=== PATIENT | female | born 1980 ===

== ENCOUNTER 2020-01-24 12:34 | Inpatient (IN) | payer MEDICARE, MEDICAID, SELFPAY ==
[2020-01-26 02:02] VITALS: BMI 27.7
[2020-01-27 06:33] VITALS: BP 128/78; PULSE 67; RESP 16; TEMP 36.2; O2SAT 98
[2020-01-27 07:00] VITALS: BMI 60.7
[2020-01-27] MEDS: buPROPion HCl XL 150 MG TAB.ER.24H PO (09:45)
[2020-01-27 09:46] VITALS: BP 128/78; PULSE 67
[2020-01-27] MEDS: Gabapentin 600 MG TABLET PO ×2 (09:46→20:57)
[2020-01-27] MEDS: amLODIPine Besylate 10 MG TABLET PO (09:46)
[2020-01-27 09:48] VITALS: BP 128/78; PULSE 67
[2020-01-27] MEDS: Losartan Potassium 50 MG TABLET 100 MG PO (09:48)
[2020-01-27] MEDS: hydroCHLOROthiazide 50 MG TABLET PO (09:49)
[2020-01-27] MEDS: Bacitracin Oint 14 GM TUBE 1 APPL TOPICAL ×2 (09:51→20:59)
--- NOTE | 2020-01-27 10:17 | HO.PSYCHPN ---
Subjective Subjective Reason For Visit: Unspecific Depressive Disorder Subjective Notes: Conditional Voluntary Interim History: pt feeling better no self harm looking forward to discharge no c/o side effects Medication Compliance: Yes Attending Groups: Yes Mental Status Exam Mental Status Exam Patient Appearance: Appropriate Patient Orientation: Person, Place, Time and Situation Level of Consciousness: Awake Patient Behavior: Appropriate Mood Description: Depressed (MILD), Blunted and Flat Affect Description: Calm and Flat Patient Cognition Impaired: No Ability to Follow Directions: Good Speech Pattern: Normal for Patient Diagnostics Vital Signs (24Hr): Vital Signs - 24 hr 01/27/20 06:33 01/27/20 09:46 01/27/20 09:48 Temperature 97.2 F Pulse Rate 67 67 67 Respiratory Rate 16 Blood Pressure 128/78 128/78 128/78 Pulse Oximetry 98 Body Mass Index 27.7 Labs Results: 01/23/20 15:24 01/23/20 15:24 Labs: Laboratory Results - last 48 hr 01/24/20 01/25/20 01/25/20 08:56 07:53 07:53 Estimat Average Glucose 111 Hemoglobin A1c 5.5 Triglycerides 99 Cholesterol 171 LDL Cholesterol, Calc 117 HDL Cholesterol 35 Urine Opiates Screen Ur Barbiturates Screen Phencyclidine Screen Ur Amphetamines Screen U Benzodiazepines Scrn Urine Cocaine Screen U Cannabinoids Screen Coronavirus (PCR) NEGATIVE 01/25/20 12:40 Estimat Average Glucose Hemoglobin A1c Triglycerides Cholesterol LDL Cholesterol, Calc HDL Cholesterol Urine Opiates Screen NOT DETECTED Ur Barbiturates Screen NOT DETECTED Phencyclidine Screen NOT DETECTED Ur Amphetamines Screen NOT DETECTED U Benzodiazepines Scrn NOT DETECTED Urine Cocaine Screen NOT DETECTED U Cannabinoids Screen NOT DETECTED Coronavirus (PCR) Medications Medications Ambulatory Orders Medication Instructions Recorded albuterol sulfate 2 puff INHALATION Q6H PRN 01/26/20 atorvastatin 40 mg PO BEDTIME 01/26/20 chlorthalidone 50 mg PO QAM 01/26/20 gabapentin 600 mg PO BID 01/26/20 losartan 100 mg PO DAILY 01/26/20 Allergies Allergies Allergy/AdvReac Type Severity Reaction Status Date / Time No Known Allergies Allergy Unverified 01/13/20 17:57 [No Known Allergies*] Assessment & Plan Assessment & Plan (1) Insomnia: Status: Acute Code(s): G47.00 - Insomnia, unspecified (2) Major psychotic depression, recurrent: Status: Acute Code(s): F33.3 - Major depressive disorder, recurrent, severe with psychotic symptoms Assessment and Plan: doing better education medication feels safe to return home (3) Suicidal behavior with attempted self-injury: Status: Inactive Code(s): T14.91XA - Suicide attempt, initial encounter Assessment and Plan: denies current thoughts Greater than 50% of the session was spent on counseling and/or coordination of care
[2020-01-27 14:45] VITALS: BMI 27.5
[2020-01-27 16:56] VITALS: BP 122/78; PULSE 63; TEMP 36.8
--- NOTE | 2020-01-27 20:48 | HO.PSYCHPN ---
Assessment & Plan Assessment & Plan (1) Major depression in complete remission: Status: Acute Code(s): F32.5 - Major depressive disorder, single episode, in full remission Assessment and Plan: seem safe for discharge tomorrow continue Wellbutrin Greater than 50% of the session was spent on counseling and/or coordination of care Patient educated on: diagnosis and medication risk/benefits Reason for contiued inpatient stay Substantial Risk for: harm to self Subjective Subjective Reason For Visit: Unspecific Depressive Disorder Medication Compliance: Yes Side effects from medications: No Attending Groups: Yes Mental Status Exam Mental Status Exam Patient Appearance: Well Grooomed Patient Orientation: Person, Place, Time and Situation Level of Consciousness: Awake Patient Behavior: Appropriate Mood Description: Withdrawn and Depressed Affect Description: Appropriate Patient Cognition Impaired: No Speech Pattern: Clear Hallucinations: None Delusions: Not Present Thought Process: Intact Depressive Symptoms: Increased Anxiety, Insomnia and Difficulty Sleeping Judgement: Good Diagnostics Vital Signs (24Hr): Vital Signs - 24 hr 01/27/20 06:33 01/27/20 09:46 01/27/20 09:48 Temperature 97.2 F Pulse Rate 67 67 67 Respiratory Rate 16 Blood Pressure 128/78 128/78 128/78 Pulse Oximetry 98 01/27/20 16:56 Temperature 98.2 F Pulse Rate 63 Respiratory Rate Blood Pressure 122/78 Pulse Oximetry Body Mass Index 27.5 Labs Results: 01/23/20 15:24 01/23/20 15:24 Labs: Laboratory Results - last 48 hr 01/24/20 01/25/20 01/25/20 08:56 07:53 07:53 Estimat Average Glucose 111 Hemoglobin A1c 5.5 Triglycerides 99 Cholesterol 171 LDL Cholesterol, Calc 117 HDL Cholesterol 35 Urine Opiates Screen Ur Barbiturates Screen Phencyclidine Screen Ur Amphetamines Screen U Benzodiazepines Scrn Urine Cocaine Screen U Cannabinoids Screen Coronavirus (PCR) NEGATIVE 01/25/20 12:40 Estimat Average Glucose Hemoglobin A1c Triglycerides Cholesterol LDL Cholesterol, Calc HDL Cholesterol Urine Opiates Screen NOT DETECTED Ur Barbiturates Screen NOT DETECTED Phencyclidine Screen NOT DETECTED Ur Amphetamines Screen NOT DETECTED U Benzodiazepines Scrn NOT DETECTED Urine Cocaine Screen NOT DETECTED U Cannabinoids Screen NOT DETECTED Coronavirus (PCR) Medications Medications Ambulatory Orders Medication Instructions Recorded albuterol sulfate 2 puff INHALATION Q6H PRN 01/26/20 atorvastatin 40 mg PO BEDTIME 01/26/20 chlorthalidone 50 mg PO QAM 01/26/20 gabapentin 600 mg PO BID 01/26/20 losartan 100 mg PO DAILY 01/26/20 Allergies Allergies Allergy/AdvReac Type Severity Reaction Status Date / Time No Known Allergies Allergy Unverified 01/13/20 17:57 [No Known Allergies*]
[2020-01-27 20:55] VITALS: BP 122/78; PULSE 63
[2020-01-27] MEDS: Metoprolol Succinate ER 100 MG TAB.ER.24H PO (20:55)
[2020-01-27] MEDS: Atorvastatin Calcium 40 MG TABLET PO (20:57)
[2020-01-28 06:08] VITALS: BP 131/74; PULSE 71; RESP 19; TEMP 36.5; O2SAT 99
[2020-01-28 08:36] VITALS: BP 131/74; PULSE 71
[2020-01-28] MEDS: Losartan Potassium 50 MG TABLET 100 MG PO (08:36)
[2020-01-28] MEDS: buPROPion HCl XL 150 MG TAB.ER.24H PO (08:36)
[2020-01-28 08:38] VITALS: BP 131/74; PULSE 71
[2020-01-28] MEDS: amLODIPine Besylate 10 MG TABLET PO (08:38)
[2020-01-28] MEDS: Gabapentin 600 MG TABLET PO (08:39)
[2020-01-28] MEDS: Bacitracin Oint 14 GM TUBE 1 APPL TOPICAL (08:39)
[2020-01-28] MEDS: hydroCHLOROthiazide 50 MG TABLET PO (08:39)
--- NOTE | 2020-01-28 13:51 | P.DS_ITS ---
DS: Providers Provider Date of admission: 01/24/20 12:34 Primary care physician: Juanjose Sotomayor MD DS: Diagnosis Discharge Diagnosis (1) Insomnia: Status: Acute Problem details: DIFFICULTY FALLING AND STAYING ASLEEP (2) Major psychotic depression, recurrent: Status: Acute Problem details: DEPRESSED MOOD LOW ENERGY IMPAIRED FUNCTIONING WAS HOPELESS HELPLESS RECENT SI (3) Suicidal behavior with attempted self-injury: Status: Inactive Problem details: RECENT SELF-HARMING THOUGHTS WITH SELF LACERATION MINOR OVERDOSE Discharge Plan Discharge Anticipated Discharge Date/Time: 01/28/20 13:49 Patient Disposition: Home, Self-Care Referrals: Leni Bailey [Other] - 01/31/20 3:45 pm (Telehealth) Therapist [Other] DR HOUSTON RIVERA [Other] [facility] [Other] - 02/01/20 7:30 am (PHP is meeting virtually using [employer]. Go to your [employer] address and you will have a invite to the assessment for the time scheduled from Carolin Frye. Her number is [phone]. If all goes planned you will be starting later that same day at 9 AM in the program. ) Juanjose Sotomayor MD [Primary Care Provider] - 02/08/20 1:30 pm Leonid Allen MD [Physician] - 03/02/20 3:00 pm (Psychiatry, telehealth. Initial appointment 03/02 3pm Follow up 03/28 11am) Discharge Medications: New bacitracin 500 unit/gram Ointment 1 appl topical BID@0830,2100 7 Days Qty: 1 RF: 2 trazodone 100 mg tablet 100 mg PO BEDTIME PRN (Reason: Insomnia) 30 Days Qty: 30 RF: 0 metoprolol succinate 100 mg Tablet Extended Release 24 Hr 100 mg PO BEDTIME 30 Days Qty: 30 RF: 0 bupropion HCl 150 mg Tablet Extended Release 24 Hr 150 mg PO DAILY Qty: 30 RF: 0 amlodipine 10 mg Tablet 10 mg PO DAILY 30 Days Qty: 30 RF: 0 nicotine (polacrilex) 2 mg Gum 2 mg buccal 4-6XD 30 Days Qty: 90 RF: 0 Continued atorvastatin 40 mg Tablet 40 mg PO BEDTIME RF: 0 chlorthalidone 50 mg Tablet 50 mg PO QAM RF: 0 albuterol sulfate 90 mcg/actuation Hfa Aerosol Inhaler 2 puff INHALATION Q6H PRN (Reason: Wheezing) RF: 0 gabapentin 600 mg Tablet 600 mg PO BID RF: 0 losartan 100 mg Tablet 100 mg PO DAILY RF: 0 Discharge Orders: Discharge Order (Routine); Ordered 01/28/20 Ordered By: Ciro Owens Diet: advance to your usual diet Activity on Discharge: As tolerated Patient Instructions: Bupropion (By mouth), Depression (DC), Help Prevent Suicide (DC), Anxiety (GEN) Stand Alone Forms: Community Support Discharge Date/Time: 01/28/20 14:50 Visit Report Forms: Patient Portal Discharge page Care Plan Goals: stable mood no self harm improve relationship with partner Health Concerns: depression couple conflict hypertension self harm Plan of Treatment: buproprion for depression trazadone for sleep therapy
== END 2020-01-28 14:50 | disposition home or self-care (01) | DRG 885 ==
PROVIDERS: Admitting Provider Psychiatry & Neurology Psychiatry; Emergency Provider Emergency Medicine; PCP Internal Medicine; Visit Provider Psychiatry & Neurology Psychiatry
DX: F33.3 Major depressive disorder, recurrent, severe with psychotic symptoms (principal); R45.851 Suicidal ideations; G47.00 Insomnia, unspecified; Z91.5 Personal history of self-harm; Z20.828 Contact with and (suspected) exposure to other viral communicable diseases; Z79.899 Other long term (current) drug therapy
CPT/HCPCS: 76775; 80051; 80061; 80307; 81001; 81025; 82565; 82947; 83036; 83690; 84520; 85025; 90686; 99232; 99239; 99285; U0003

== ENCOUNTER → 2020-07-20 14:36 | Outpatient (BNVA) | payer MEDICARE, MEDICAID, SELFPAY | PROVIDERS: PCP Internal Medicine; Visit Provider Urology | CPT/HCPCS: Q3014 ==

== ENCOUNTER → 2020-10-27 15:15 | Outpatient (BNVA) | payer MEDICARE, MEDICAID, SELFPAY | PROVIDERS: PCP Physician Assistant Medical; Visit Provider Urology | DX: N20.0 Calculus of kidney (principal) | CPT/HCPCS: Q3014 ==

== ENCOUNTER 2021-05-29 10:03 | Outpatient (REF) | payer MEDICARE, MEDICAID, SELFPAY ==
--- NOTE | ~2021-05-29 | US_ITS ---
EXAMINATION: US RETROPERITONEAL LIMITED (RENAL ONLY) CLINICAL INFORMATION: Calculus of kidney. COMPARISON: Renal ultrasound 01/23/2020 and 11/01/2019. XR abdomen KUB 12/01/2019. CT abdomen and pelvis without contrast 11/01/2018. TECHNIQUE: Real-time imaging of the kidneys. FINDINGS: RIGHT KIDNEY: 9.8 x 3.9 x 5.7 cm (SAG x AP x TRV). The kidney is normal in size, contour, and echogenicity. Renal cortical thickness is normal. No calculi or focal parenchymal lesions. No hydronephrosis. LEFT KIDNEY: 10.8 x 5.2 x 5.9 cm (SAG x AP x TRV). The kidney is normal in size, contour, and echogenicity. Renal cortical thickness is normal. No calculi or focal parenchymal lesions. No hydronephrosis. US/US renal BI IMPRESSION: Normal renal ultrasound..
== END 2021-05-29 10:04 | disposition home or self-care (01) ==
LOC: HO.HMGCX 10:03
PROVIDERS: Visit Provider Urology
DX: N20.0 Calculus of kidney (principal)
CPT/HCPCS: 76775

== ENCOUNTER 2022-10-15 15:48 | Emergency (ER) | payer MEDICARE, MEDICAID, SELFPAY ==
--- NOTE | ~2022-10-15 | CT_ITS ---
EXAMINATION: CT ABDOMEN AND PELVIS WITHOUT CONTRAST CLINICAL INFORMATION: Right-sided flank pain COMPARISON: CT abdomen pelvis 11/01/2018 TECHNIQUE: Multidetector volumetric imaging was performed from the superior aspect of the liver through the pubic symphysis. Sagittal and coronal reformatted images were obtained on the technologist's workstation. This CT examination was performed using dose optimization techniques as appropriate, variously including the following: *Automated exposure control *Adjustment of mA and/or kV according to patient size (this includes techniques or standardized protocols for targeted exams where dose is matched to indication/reason for exam; i.e. extremities or head) *Use of iterative reconstruction technique DLP: 698 mGy-cm FINDINGS: LUNG BASES: The visualized lung bases are unremarkable. LIVER, GALLBLADDER, AND BILIARY TREE: The liver is enlarged measuring 19.7 cm in greatest length but attenuation is normal. . No focal hepatic lesion or biliary ductal dilatation is present. Status post cholecystectomy. PANCREAS: Unremarkable. SPLEEN: Unremarkable. ADRENAL GLANDS: Unremarkable. KIDNEYS AND URETERS: The kidneys are normal in size, shape, and attenuation. No hydronephrosis, hydroureter, or calculi seen. No perinephric stranding. BLADDER: Empty and cannot be evaluated GASTROINTESTINAL TRACT: The small and large bowel are unremarkable. The appendix is not seen with certainty but there is no evidence of appendicitis appendicitis. ABDOMINAL WALL: No significant hernia is appreciated. LYMPH NODES: No retroperitoneal lymphadenopathy. VASCULAR: Calcific atherosclerotic plaque present in the abdominal aorta and iliac vessels PELVIC VISCERA: Status post hysterectomy. An abnormal adnexal mass or free intraperitoneal fluid is not seen. OSSEOUS STRUCTURES: Marked degenerative changes are present at L4-L5 with marked sclerosis and endplate changes with osteophytes. A disc prosthesis appears to be present at that level. CT/CT abdomen pelvis wo IV con IMPRESSION: 1. A cause for the patient's right-sided flank pain has not been found. 2. There has been no interval change since the 11/01/2018 study. Incidental note made of hepatomegaly, cholecystectomy, hysterectomy and degenerative and postoperative changes at L4-L5. Fleischner guidelines were followed.
[2022-10-15 16:16] VITALS: BP 174/120; PULSE 104; RESP 16; TEMP 36.6; O2SAT 99; BMI 33.5
--- NOTE | 2022-10-15 16:41 | ED.GENADULT ---
HPI - General Adult General Chief complaint: Abdominal Pain Stated complaint: Flank pain/Nauseas Time Seen by Provider: 10/15/22 21:35 Source: patient Mode of arrival: ambulatory Limitations: no limitations History of Present Illness HPI narrative: Patient history of depression anxiety history of nonobstructive kidney stone with chronic flank pain comes here for diffuse abdominal pain and back pain also noticed frequency and slight blood in the urine patient is status post appendectomy and cholecystectomy no nausea no vomiting no diarrhea Related Data Home Medications Medication Instructions Recorded Confirmed albuterol sulfate 90 mcg/actuation 2 puff inhalation Q6H PRN Wheezing 01/26/20 01/26/20 aerosol inhaler atorvastatin 40 mg tablet 40 mg PO BEDTIME 01/26/20 01/26/20 chlorthalidone 50 mg tablet 50 mg PO QAM 01/26/20 01/26/20 gabapentin 600 mg tablet 600 mg PO BID 01/26/20 01/26/20 losartan 100 mg tablet 100 mg PO DAILY 01/26/20 01/26/20 leuprolide 3.75 mg intramuscular mg IM 07/20/20 syringe kit Previous Rx's Medication Instructions Recorded amlodipine 10 mg tablet 10 mg PO DAILY 30 days #30 tabs 01/28/20 bacitracin 500 unit/gram topical 1 appl topical BID@0830,2100 7 01/28/20 ointment days #1 film bupropion HCl 150 mg 24 hr tablet, 150 mg PO DAILY #30 tabs 01/28/20 extended release metoprolol succinate 100 mg 100 mg PO BEDTIME 30 days #30 tabs 01/28/20 tablet,extended release 24 hr nicotine (polacrilex) 2 mg gum 2 mg buccal 4-6XD 30 days #90 ea 01/28/20 trazodone 100 mg tablet 100 mg PO BEDTIME PRN Insomnia 30 01/28/20 days #30 tabs pyridoxine (vitamin B6) 100 mg 100 mg PO DAILY 90 days #90 tabs 07/20/20 tablet dicyclomine 20 mg tablet 20 mg PO TID PRN abdominal pain 10/15/22 #20 tabs Allergies Allergy/AdvReac Type Severity Reaction Status Date / Time No Known Allergies Allergy Verified 10/27/20 15:17 [No Known Allergies*] Review of Systems Review of Systems: Yes all other systems are reviewed and are negative PMFSH Past Medical History Medical History Major depression in complete remission Major psychotic depression, recurrent Suicidal behavior with attempted self-injury Social History Social History Smoked in Last 30 Days: No Use of substances other than those prescribed or required for medical reasons: No Advance Directives: No Advance Directives Information Provided: No Patient : No Physical Exam ED Vital Signs: Vital Signs - 24 hr 10/15/22 16:16 10/15/22 20:03 10/15/22 22:02 Temperature 98 F 98.8 F Pulse Rate 104 H 82 70 Respiratory Rate 16 12 20 Blood Pressure 174/120 H 159/105 H 143/89 H Pulse Oximetry 99 98 96 Oxygen Delivery Method Room Air Room Air Room Air BMI result Body Mass Index 33.5 Appearance: Alert. Oriented X3. No acute distress. Eyes: No pallor or icterus ENT: Pharynx normal. Oral Mucosa moist Neck: Normal inspection. Neck supple. CVS: Normal heart rate and rhythm. Pulses normal. Respiratory: No respiratory distress. Equal air entry bilateral, no wheezing/rales/rhonchi Abdomen: Soft mild diffuse tenderness no rebound tenderness or guarding. Bowel sounds are present, no mass palpable, no CVA tenderness Skin: Skin warm and dry. Normal skin color. Normal skin turgor. Extremities: No lower extremity edema. No calf tenderness Neuro: Oriented X 3. No motor deficit. Course Course Course Narrative: 42 year old female presents for evaluation of right flank pain. Hx of kidney stones. Plan for labs, UA, CT Medications Administered Discontinued Medications Generic Name Dose Route Start Last Admin Trade Name Freq PRN Reason Stop Dose Admin Dicyclomine HCl 20 mg 10/15/22 22:06 10/15/22 22:16 Dicyclomine Hcl 10 Mg Capsule PO 10/15/22 22:07 20 mg ONCE ONE Administration Medical Decision Making Medical Decision Making [facility] Narrative: Patient with frequent flank pain CT scan negative for acute pathology in the abdomen or kidneys discharge patient home advised to drink plenty of fluids Lab Data [facility] Lab Attestation statement: I reviewed the patient's lab results. 10/15/22 16:44 10/15/22 16:44 Labs: Lab Results 10/15/22 10/15/22 10/15/22 Range/Units 15:13 16:44 16:44 WBC 10.6 (4.8-10.8) X10*3/uL RBC 4.85 (4.20-5.50) X10*6/uL Hgb 13.9 (12.0-16.0) g/dl Hct 42.5 (37.0-47.0) % MCV 87.6 (80.0-98.0) fL MCH 28.7 (27.0-33.0) pg MCHC 32.7 (31.0-35.0) g/dl RDW 14.4 (11.0-16.0) % Plt Count 286 (160-400) X10*3/uL MPV 8.6 L (9.4-12.3) fL Immature Gran % (Auto) 0.5 H (0.0-0.4) % Neut % (Auto) 63.4 (45-73) % Lymph % (Auto) 27.9 (20-40) % Garland % (Auto) 5.0 (2-11) % Eos % (Auto) 2.6 (0-4) % Baso % (Auto) 0.6 (0-2) % Lymph # (Auto) 3.0 (1.2-4.9) X10*3/uL Garland # (Auto) 0.5 (0.1-1.2) X10*3/uL Eos # (Auto) 0.3 (0.0-0.4) X10*3/uL Baso # (Auto) 0.1 (0.0-0.2) X10*3/uL Abs Immat Gran (auto) 0.05 H (0.00-0.03) X10*3/uL Absolute Neuts (auto) 6.7 (2.0-8.3) x10*3/uL Absolute Nucleated RBC 0.000 (0.0-0.012) X10*3/uL Nucleated RBC % (auto) 0.0 (0.0-0.2) /100WBC Sodium 140 (135-145) mmol/L Potassium 4.1 (3.3-5.1) mmol/L Chloride 107 (96-108) mmol/L Carbon Dioxide 25 (22-29) mmol/L Anion Gap 12 (12-20) BUN 11 (9-16) mg/dL Creatinine 0.80 (0.5-1.4) mg/dL Estim Creat Clear Calc 85.3 Estimated GFR > 60 Random Glucose 97 (60-115) mg/dL Calcium 9.8 (8.4-10.2) mg/dL Total Bilirubin 0.2 (0.0-1.0) mg/dL AST 12 (5-31) U/L ALT 14 (0-31) U/L Alkaline Phosphatase 140 H (39-117) U/L Total Protein 7.8 (6.5-8.0) g/dL Albumin 4.3 (3.5-5.0) g/dL Lipase 26 (8-78) U/L Urine Color Yellow Urine Appearance Clear Urine pH 5.5 (5.0-9.0) Ur Specific [place] 1.020 (1.005-1.025) Urine Protein Negative (Neg-Trace) mg/dL Urine Glucose (UA) Negative (Negative) mg/dL Urine Ketones Trace (Negative) mg/dL Urine Blood Small (1+) H (Negative) Urine Nitrite Negative (Negative) Ur Leukocyte Esterase Negative (Negative) Urine RBC 6-10 H (0-2) /HPF Urine WBC 0-5 (0-5) /HPF Ur Squamous Epith Cells 0-2 (0-2) /HPF Calcium Oxalate Crystal Present Urine Bacteria Trace (None Seen) Hyaline Casts 0-2 (0-2) /LPF 10/15/23 Range/Units 20:23 WBC (4.8-10.8) X10*3/uL RBC (4.20-5.50) X10*6/uL Hgb (12.0-16.0) g/dl Hct (37.0-47.0) % MCV (80.0-98.0) fL MCH (27.0-33.0) pg MCHC (31.0-35.0) g/dl RDW (11.0-16.0) % Plt Count (160-400) X10*3/uL MPV (9.4-12.3) fL Immature Gran % (Auto) (0.0-0.4) % Neut % (Auto) (45-73) % Lymph % (Auto) (20-40) % Garland % (Auto) (2-11) % Eos % (Auto) (0-4) % Baso % (Auto) (0-2) % Lymph # (Auto) (1.2-4.9) X10*3/uL Garland # (Auto) (0.1-1.2) X10*3/uL Eos # (Auto) (0.0-0.4) X10*3/uL Baso # (Auto) (0.0-0.2) X10*3/uL Abs Immat Gran (auto) (0.00-0.03) X10*3/uL Absolute Neuts (auto) (2.0-8.3) x10*3/uL Absolute Nucleated RBC (0.0-0.012) X10*3/uL Nucleated RBC % (auto) (0.0-0.2) /100WBC Sodium (135-145) mmol/L Potassium (3.3-5.1) mmol/L Chloride (96-108) mmol/L Carbon Dioxide (22-29) mmol/L Anion Gap (12-20) BUN (9-16) mg/dL Creatinine (0.5-1.4) mg/dL Estim Creat Clear Calc Estimated GFR Random Glucose (60-115) mg/dL Calcium (8.4-10.2) mg/dL Total Bilirubin (0.0-1.0) mg/dL AST (5-31) U/L ALT (0-31) U/L Alkaline Phosphatase (39-117) U/L Total Protein (6.5-8.0) g/dL Albumin (3.5-5.0) g/dL Lipase (8-78) U/L Urine Color Yellow Urine Appearance Cloudy Urine pH 5.5 (5.0-9.0) Ur Specific [place] 1.025 (1.005-1.025) Urine Protein Trace (Neg-Trace) mg/dL Urine Glucose (UA) Negative (Negative) mg/dL Urine Ketones Trace (Negative) mg/dL Urine Blood Moderate (2+) H (Negative) Urine Nitrite Negative (Negative) Ur Leukocyte Esterase Negative (Negative) Urine RBC 11-20 H (0-2) /HPF Urine WBC 0-5 (0-5) /HPF Ur Squamous Epith Cells 3-5 (0-2) /HPF Calcium Oxalate Crystal Present Urine Bacteria Trace (None Seen) Hyaline Casts 0-2 (0-2) /LPF Discharge Plan Discharge Clinical Impression: Abdominal pain, Irritable bowel syndrome Patient Disposition: Home, Self-Care Instructions: Irritable Bowel Syndrome (ED), Abdominal Pain (ED) Additional Instructions: You have chronic abdominal pain likely have IBS Take Bentyl 1 tablet every 8 hours as needed Follow-up with PCP Prescriptions: New dicyclomine 20 mg tablet 20 mg PO TID PRN (Reason: abdominal pain) Qty: 20 0RF No Action atorvastatin 40 mg Tablet 40 mg PO BEDTIME chlorthalidone 50 mg Tablet 50 mg PO QAM albuterol sulfate 90 mcg/actuation Hfa Aerosol Inhaler 2 puff INHALATION Q6H PRN (Reason: Wheezing) gabapentin 600 mg Tablet 600 mg PO BID losartan 100 mg Tablet 100 mg PO DAILY bacitracin 500 unit/gram Ointment 1 appl topical BID@0830,2100 7 Days Qty: 1 2RF Protocol: Apply to: Apply to: AREAS OF LACERATION Rx Instructions: apply 2 x day to areas of laceration trazodone 100 mg tablet 100 mg PO BEDTIME PRN (Reason: Insomnia) 30 Days Qty: 30 0RF metoprolol succinate 100 mg Tablet Extended Release 24 Hr 100 mg PO BEDTIME 30 Days Qty: 30 0RF Protocol: Hold for SBP/HR < HOLD for SBP < : 90 HOLD for HR < : 60 bupropion HCl 150 mg Tablet Extended Release 24 Hr 150 mg PO DAILY Qty: 30 0RF amlodipine 10 mg Tablet 10 mg PO DAILY 30 Days Qty: 30 0RF Protocol: Hold for SBP< HOLD for SBP < : 90 nicotine (polacrilex) 2 mg Gum 2 mg buccal 4-6XD 30 Days Qty: 90 0RF pyridoxine (vitamin B6) 100 mg tablet 100 mg PO DAILY 90 Days Qty: 90 1RF Interventions: ED Discharge Assessment Last Done: 10/15/22 22:20 Discharge Date/Time: 10/15/22 23:02
[2022-10-15 16:51] LABS: Basophils Absolute Auto 0.1 X10*3/uL (0.0-0.2); Basophils Percent Auto 0.6 % (0-2); Eosinophils Absolute Auto 0.3 X10*3/uL (0.0-0.4); Eosinophils Percent Auto 2.6 % (0-4); Hematocrit 42.5 % (37.0-47.0); Hemoglobin 13.9 g/dl (12.0-16.0); Imm Gran Abs Auto 0.05 X10*3/uL (0.00-0.03); Imm Gran Pct Auto 0.5 % (0.0-0.4); Lymphocytes Percent Auto 27.9 % (20-40); MANUAL DIFF FLAG NO; Mean Corpuscular HGB Conc 32.7 g/dl (31.0-35.0); Mean Corpuscular Hemoglobin 28.7 pg (27.0-33.0); Mean Corpuscular Volume 87.6 fL (80.0-98.0); Mean Platelet Volume 8.6 fL (9.4-12.3); Monocytes Absolute Auto 0.5 X10*3/uL (0.1-1.2); Neutrophils Absolute Auto 6.7 x10*3/uL (2.0-8.3); Neutrophils Percent Auto 63.4 % (45-73); Platelet Count 286 X10*3/uL (160-400); Red Blood Count 4.85 X10*6/uL (4.20-5.50); Red Cell Distribution Width 14.4 % (11.0-16.0); White Blood Count 10.6 X10*3/uL (4.8-10.8)
[2022-10-15 17:08] LABS: Alanine Aminotransferase 14 U/L (0-31); Albumin Level 4.3 g/dL (3.5-5.0); Alkaline Phosphatase 140 U/L (39-117); Anion Gap 12 (12-20); Aspartate Amino Transferase 12 U/L (5-31); Bilirubin Total 0.2 mg/dL (0.0-1.0); Blood Urea Nitrogen 11 mg/dL (9-16); Calcium 9.8 mg/dL (8.4-10.2); Carbon Dioxide 25 mmol/L (22-29); Chloride 107 mmol/L (96-108); Creatinine Clr Calc Pharmacy 85.3; Estimated Glomerular Filt Rate > 60; Glucose Random 97 mg/dL (60-115); Lipase 26 U/L (8-78); Potassium 4.1 mmol/L (3.3-5.1); Sodium 140 mmol/L (135-145); Total Protein 7.8 g/dL (6.5-8.0)
[2022-10-15 17:48] LABS: Appearance Urine Clear; Color Urine Yellow; Glucose Urine UA Negative (Negative); Leukocyte Esterase Urine Negative (Negative); Nitrite Urine Negative (Negative); PH 5.5 (5.0-9.0); UMIC TRIGGER UACC YES; Urine Blood Small (1+) (Negative); Urine Ketones Trace mg/dL (Negative); Urine Protein Negative (Neg-Trace)
[2022-10-15 18:05] LABS: Bacteria Urine Trace (None Seen); Calcium Oxalate Crystals Urine Present; Hyaline Casts Urine 0-2 /LPF (0-2); Squamous Epithelial Cell Urine 0-2 /HPF (0-2); WBC Urine 0-5 /HPF (0-5)
[2022-10-15 20:03] VITALS: BP 159/105; PULSE 82; RESP 12; TEMP 37.1; O2SAT 98
[2022-10-15 20:34] LABS: Appearance Urine Cloudy; Color Urine Yellow; Glucose Urine UA Negative (Negative); Leukocyte Esterase Urine Negative (Negative); Nitrite Urine Negative (Negative); PH 5.5 (5.0-9.0); Specific Gravity - Urine 1.025 (1.005-1.025); UMIC TRIGGER UACC YES; Urine Blood Moderate (2+) (Negative); Urine Ketones Trace mg/dL (Negative); Urine Protein Trace mg/dL (Neg-Trace)
[2022-10-15 21:07] LABS: Bacteria Urine Trace (None Seen); Calcium Oxalate Crystals Urine Present; Hyaline Casts Urine 0-2 /LPF (0-2); WBC Urine 0-5 /HPF (0-5)
[2022-10-15 22:02] VITALS: BP 143/89; PULSE 70; RESP 20; O2SAT 96
[2022-10-15] MEDS: Dicyclomine HCl 10 MG CAPSULE 20 MG PO (22:16)
== END 2022-10-15 23:02 | disposition home or self-care (01) ==
PROVIDERS: Physician Assistant; Emergency Provider Internal Medicine; PCP Physician Assistant Medical
DX: K58.9 Irritable bowel syndrome, unspecified (principal); R10.13 Epigastric pain; Z79.899 Other long term (current) drug therapy
CPT/HCPCS: 36415; 74176; 80053; 81001; 81003; 83690; 85025; 99284

== ENCOUNTER 2022-10-24 19:46 | Emergency (ER) | payer MEDICARE, MEDICAID, SELFPAY ==
--- NOTE | ~2022-10-24 | XR_ITS ---
EXAMINATION: XR CHEST CLINICAL INFORMATION: Chest pain, SOB COMPARISON: Chest 12/13/2014. TECHNIQUE: Frontal view of the chest was obtained. FINDINGS: No significant abnormality is noted involving the heart, lungs, mediastinum, bony thorax or soft tissues. XR/XR chest 1V IMPRESSION: Unremarkable chest examination.
--- NOTE | 2022-10-24 19:49 | ECG_ITS ---
Test Reason : CHEST PAIN Blood Pressure : / mmHG Vent. Rate : 077 BPM Atrial Rate : 077 BPM P-R Int : 154 ms QRS Dur : 088 ms QT Int : 394 ms P-R-T Axes : 053 -09 -12 degrees QTc Int : 445 ms Normal sinus rhythm Possible Anterolateral infarct , age undetermined Abnormal ECG When compared with ECG of 13-DEC-2014 07:34, Nonspecific T wave abnormality, worse in Anterior leads Referred By: Vanessa Tran Electronically Signed By:Francis Duval
[2022-10-24 19:52] VITALS: BP 173/108; PULSE 90; RESP 18; TEMP 36; O2SAT 97; BMI 31.6
--- NOTE | 2022-10-24 19:54 | ED_ITS ---
HPI - General Adult General Chief complaint: Chest Pain Stated complaint: chest pain,left arm pain Time Seen by Provider: 10/24/22 20:49 Source: patient Mode of arrival: ambulatory History of Present Illness HPI narrative: 42-year-old female who presents with chest tightness that she states started at approximately noon today and reports that she had previously had nausea and vomiting prior to this. Patient was concerned because it was radiating to her left arm but she denies any associated headache, dizziness, fevers, chills but states she has been experiencing some shortness of breath and denies any history of [place] or stroke. Patient also reports tingling in her fingers. Patient denies any new cough or sore throat and denies any abdominal discomfort, diarrhea or dysuria. Related Data Home Medications Medication Instructions Recorded Confirmed albuterol sulfate 90 mcg/actuation 2 puff inhalation Q6H PRN Wheezing 01/26/20 01/26/20 aerosol inhaler atorvastatin 40 mg tablet 40 mg PO BEDTIME 01/26/20 01/26/20 chlorthalidone 50 mg tablet 50 mg PO QAM 01/26/20 01/26/20 gabapentin 600 mg tablet 600 mg PO BID 01/26/20 01/26/20 losartan 100 mg tablet 100 mg PO DAILY 01/26/20 01/26/20 leuprolide 3.75 mg intramuscular mg IM 07/20/20 syringe kit Previous Rx's Medication Instructions Recorded amlodipine 10 mg tablet 10 mg PO DAILY 30 days #30 tabs 01/28/20 bacitracin 500 unit/gram topical 1 appl topical BID@0830,2100 7 01/28/20 ointment days #1 film bupropion HCl 150 mg 24 hr tablet, 150 mg PO DAILY #30 tabs 01/28/20 extended release metoprolol succinate 100 mg 100 mg PO BEDTIME 30 days #30 tabs 01/28/20 tablet,extended release 24 hr nicotine (polacrilex) 2 mg gum 2 mg buccal 4-6XD 30 days #90 ea 01/28/20 trazodone 100 mg tablet 100 mg PO BEDTIME PRN Insomnia 30 01/28/20 days #30 tabs pyridoxine (vitamin B6) 100 mg 100 mg PO DAILY 90 days #90 tabs 07/20/20 tablet dicyclomine 20 mg tablet 20 mg PO TID PRN abdominal pain 10/15/22 #20 tabs omeprazole 40 mg capsule,delayed 40 mg PO DAILY #30 caps 10/24/22 release Allergies Allergy/AdvReac Type Severity Reaction Status Date / Time No Known Allergies Allergy Verified 10/24/22 19:57 [No Known Allergies*] Review of Systems 2 Review of Systems: Pertinent positives and negatives as stated in HPI PMFSH Past Medical History Source: nursing notes reviewed Medical History Major depression in complete remission Major psychotic depression, recurrent Suicidal behavior with attempted self-injury Social History Social History Alcohol intake: current Alcohol intake frequency: holidays/special occasions only Smoked in Last 30 Days: Yes Use of substances other than those prescribed or required for medical reasons: No Advance Directives: No Advance Directives Information Provided: No Patient : No Physical Exam ED Vital Signs: Vital Signs - 24 hr 10/24/22 19:52 10/24/22 20:13 10/24/22 22:00 Temperature 96.8 F Pulse Rate 90 85 70 Respiratory Rate 18 22 H 22 H Blood Pressure 173/108 H 168/102 H 142/89 H Pulse Oximetry 97 97 98 Oxygen Delivery Method Room Air Room Air Room Air BMI result Body Mass Index 31.6 VITAL SIGNS: Reviewed. GENERAL: Well developed, well nourished, in no acute distress. HEAD: Normocephalic/atraumatic EYES: PERRLA, EOMI EARS: Ext canals without abnormality NOSE: Nares patent bilateral OROPHARYNX: no oral lesions noted, posterior pharynx clear NECK: Supple, no adenopathy LUNGS: Normal breath sounds. No adventitious sounds or accessory muscle use. SpO2<98> CARDIOVASCULAR: Regular rate and rhythm without noted murmurs ABDOMEN: Soft, non-tender, non-distended with bowel sounds. MUSCULOSKELETAL: No tenderness, deformities, or effusions noted on gross inspection. EXTREMITIES: No cyanosis, clubbing or edema. SKIN: Inspection of the skin reveals no rashes NEUROLOGIC: Alert and oriented x 4. Strength and sensation to light touch were grossly intact x 4. Course Course Course Narrative: This is an RME: Additional HPI, ROS, PE not included below will be deferred to primary provider. 42 year old female with past medical history of nephrolithiasis presents with chest pain and left arm pain that started this morning. Patient describes the chest pain as squeezing and some shortness of breath. Patient reports vomiting 2x today. Patient reports tingling in left fingers. Patient is a smoker. Patient denies fever, chills, night sweats. Plan: labs, EKG, Medications Administered Discontinued Medications Generic Name Dose Route Start Last Admin Trade Name Anette PRN Reason Stop Dose Admin Amlodipine Besylate 10 mg 10/24/22 22:32 10/24/22 22:38 Amlodipine Besylate 10 Mg Tablet PO 10/24/22 22:33 10 mg ONCE ONE Administration Protocol Sucralfate 1 gm 10/24/22 22:01 10/24/22 22:16 Sucralfate Oral Suspension 1 Gm/10 Ml Oral.Susp PO 10/24/22 22:02 1 gm ONCE ONE Administration Medical Decision Making Medical Decision Making MDM Narrative: 42-year-old female with history and clinical presentation DDX: Pneumonia, acid reflux, ACS, gastritis, pancreatitis. Patient is status post cholecystectomy. I reviewed all investigations and hematologic studies do not support any diagnosis of infection or anemia, all a chemistries demonstrate abnormal LFTs, the alkaline phosphatase is chronically stable and the slight bump in transaminases are likely attributable to either medication or fatty liver as there are no other clinical or historical findings to strongly support a retained stone. Otherwise, troponin is undetectable, chest x-ray does not demonstrate a pneumonia, and EKG is without acute changes when compared to prior. Patient was treated with acid reflux type medications and cautioned against using NSAIDs and discharged home. I increased her omeprazole to 40 mg daily. Differential Diagnosis Please see the discussion above Admission/Observation Consideration of admission/observation: Escalation of care including admission/observation considered Lab Data Please see the discussion above 10/24/22 20:26 10/24/22 20:26 Labs: Lab Results 10/24/22 10/24/22 10/24/22 Range/Units 20:26 20:26 20:26 WBC 9.0 (4.8-10.8) X10*3/uL RBC 4.38 (4.20-5.50) X10*6/uL Hgb 12.7 (12.0-16.0) g/dl Hct 37.9 (37.0-47.0) % MCV 86.5 (80.0-98.0) fL MCH 29.0 (27.0-33.0) pg MCHC 33.5 (31.0-35.0) g/dl RDW 14.0 (11.0-16.0) % Plt Count 249 (160-400) X10*3/uL MPV 8.5 L (9.4-12.3) fL Immature Gran % (Auto) 0.6 H (0.0-0.4) % Neut % (Auto) 57.6 (45-73) % Lymph % (Auto) 31.1 (20-40) % [place] % (Auto) 5.9 (2-11) % Eos % (Auto) 4.2 H (0-4) % Baso % (Auto) 0.6 (0-2) % Lymph # (Auto) 2.8 (1.2-4.9) X10*3/uL [place] # (Auto) 0.5 (0.1-1.2) X10*3/uL Eos # (Auto) 0.4 (0.0-0.4) X10*3/uL Baso # (Auto) 0.1 (0.0-0.2) X10*3/uL Abs Immat Gran (auto) 0.05 H (0.00-0.03) X10*3/uL Absolute Neuts (auto) 5.2 (2.0-8.3) x10*3/uL Absolute Nucleated RBC 0.000 (0.0-0.012) X10*3/uL Nucleated RBC % (auto) 0.0 (0.0-0.2) /100WBC Sodium 136 (135-145) mmol/L Potassium 3.3 (3.3-5.1) mmol/L Chloride 99 (96-108) mmol/L Carbon Dioxide 27 (22-29) mmol/L Anion Gap 13 (12-20) BUN 11 (9-16) mg/dL Creatinine 0.74 (0.5-1.4) mg/dL Estim Creat Clear Calc 89.5 Estimated GFR > 60 Random Glucose 106 (60-115) mg/dL Calcium 9.1 D (8.4-10.2) mg/dL Magnesium 2.0 (1.6-2.6) mg/dL Total Bilirubin 0.2 (0.0-1.0) mg/dL AST 57 H (5-31) U/L ALT 158 H (0-31) U/L Alkaline Phosphatase 167 H (39-117) U/L Troponin I High Sens < 2.7 (<3.5-17.0) ng/L Total Protein 7.3 (6.5-8.0) g/dL Albumin 3.9 (3.5-5.0) g/dL Lipase 20 (8-78) U/L Urine Color Urine Appearance Urine pH (5.0-9.0) Ur Specific [place] (1.005-1.025) Urine Protein (Neg-Trace) mg/dL Urine Glucose (UA) (Negative) mg/dL Urine Ketones (Negative) mg/dL Urine Blood (Negative) Urine Nitrite (Negative) Ur Leukocyte Esterase (Negative) 10/24/22 Range/Units 21:39 WBC (4.8-10.8) X10*3/uL RBC (4.20-5.50) X10*6/uL Hgb (12.0-16.0) g/dl Hct (37.0-47.0) % MCV (80.0-98.0) fL MCH (27.0-33.0) pg MCHC (31.0-35.0) g/dl RDW (11.0-16.0) % Plt Count (160-400) X10*3/uL MPV (9.4-12.3) fL Immature Gran % (Auto) (0.0-0.4) % Neut % (Auto) (45-73) % Lymph % (Auto) (20-40) % [place] % (Auto) (2-11) % Eos % (Auto) (0-4) % Baso % (Auto) (0-2) % Lymph # (Auto) (1.2-4.9) X10*3/uL [place] # (Auto) (0.1-1.2) X10*3/uL Eos # (Auto) (0.0-0.4) X10*3/uL Baso # (Auto) (0.0-0.2) X10*3/uL Abs Immat Gran (auto) (0.00-0.03) X10*3/uL Absolute Neuts (auto) (2.0-8.3) x10*3/uL Absolute Nucleated RBC (0.0-0.012) X10*3/uL Nucleated RBC % (auto) (0.0-0.2) /100WBC Sodium (135-145) mmol/L Potassium (3.3-5.1) mmol/L Chloride (96-108) mmol/L Carbon Dioxide (22-29) mmol/L Anion Gap (12-20) BUN (9-16) mg/dL Creatinine (0.5-1.4) mg/dL Estim Creat Clear Calc Estimated GFR Random Glucose (60-115) mg/dL Calcium (8.4-10.2) mg/dL Magnesium (1.6-2.6) mg/dL Total Bilirubin (0.0-1.0) mg/dL AST (5-31) U/L ALT (0-31) U/L Alkaline Phosphatase (39-117) U/L Troponin I High Sens (<3.5-17.0) ng/L Total Protein (6.5-8.0) g/dL Albumin (3.5-5.0) g/dL Lipase (8-78) U/L Urine Color Yellow Urine Appearance Clear Urine pH 7.5 (5.0-9.0) Ur Specific [place] 1.020 (1.005-1.025) Urine Protein Negative (Neg-Trace) mg/dL Urine Glucose (UA) Negative (Negative) mg/dL Urine Ketones Negative (Negative) mg/dL Urine Blood Negative (Negative) Urine Nitrite Negative (Negative) Ur Leukocyte Esterase Negative (Negative) Independent Interpretation I performed an independent interpretation of an: EKG Interpretation: Normal sinus rhythm, HR-77, no STEMI, AR/QRS/QTC is within normal limits. Radiology Impression Radiologist Impression: No pneumonia, otherwise my interpretation is in agreement with radiology's impression. External Record Review External record reviewed: Prior outpatient labs Chronic Conditions Patient?s care impacted by: Hypertension Discharge Plan Discharge Clinical Impression: Gastroesophageal reflux disease, Gastritis Patient Disposition: Home, Self-Care Instructions: Gastritis (ED), Diet for Stomach Ulcers and Gastritis (ED), Gastroesophageal Reflux Disease (ED) Additional Instructions: 1. Resume all home medications as prescribed. 2. I strongly recommend that you review the dietary recommendations to avoid excessive acid production. 3. I am giving you a prescription for medicine that will further control the acid production. 4. Follow-up with your primary care provider in the next 1-2 days. Return to the ER for any worsening symptoms. Prescriptions: New omeprazole 40 mg capsule,delayed release(DR/EC) 40 mg PO DAILY Qty: 30 0RF No Action atorvastatin 40 mg Tablet 40 mg PO BEDTIME chlorthalidone 50 mg Tablet 50 mg PO QAM albuterol sulfate 90 mcg/actuation Hfa Aerosol Inhaler 2 puff INHALATION Q6H PRN (Reason: Wheezing) gabapentin 600 mg Tablet 600 mg PO BID losartan 100 mg Tablet 100 mg PO DAILY bacitracin 500 unit/gram Ointment 1 appl topical BID@0830,2100 7 Days Qty: 1 2RF Protocol: Apply to: Apply to: AREAS OF LACERATION Rx Instructions: apply 2 x day to areas of laceration trazodone 100 mg tablet 100 mg PO BEDTIME PRN (Reason: Insomnia) 30 Days Qty: 30 0RF metoprolol succinate 100 mg Tablet Extended Release 24 Hr 100 mg PO BEDTIME 30 Days Qty: 30 0RF Protocol: Hold for SBP/HR < HOLD for SBP < : 90 HOLD for HR < : 60 bupropion HCl 150 mg Tablet Extended Release 24 Hr 150 mg PO DAILY Qty: 30 0RF amlodipine 10 mg Tablet 10 mg PO DAILY 30 Days Qty: 30 0RF Protocol: Hold for SBP< HOLD for SBP < : 90 nicotine (polacrilex) 2 mg Gum 2 mg buccal 4-6XD 30 Days Qty: 90 0RF dicyclomine 20 mg tablet 20 mg PO TID PRN (Reason: abdominal pain) Qty: 20 0RF pyridoxine (vitamin B6) 100 mg tablet 100 mg PO DAILY 90 Days Qty: 90 1RF
[2022-10-24 20:13] VITALS: BP 168/102; PULSE 85; RESP 22; O2SAT 97
[2022-10-24 20:31] LABS: MANUAL DIFF FLAG NO
[2022-10-24 20:32] LABS: Basophils Absolute Auto 0.1 X10*3/uL (0.0-0.2); Basophils Percent Auto 0.6 % (0-2); Eosinophils Absolute Auto 0.4 X10*3/uL (0.0-0.4); Eosinophils Percent Auto 4.2 % (0-4); Hematocrit 37.9 % (37.0-47.0); Hemoglobin 12.7 g/dl (12.0-16.0); Imm Gran Abs Auto 0.05 X10*3/uL (0.00-0.03); Imm Gran Pct Auto 0.6 % (0.0-0.4); Lymphocytes Absolute Auto 2.8 X10*3/uL (1.2-4.9); Lymphocytes Percent Auto 31.1 % (20-40); Mean Corpuscular HGB Conc 33.5 g/dl (31.0-35.0); Mean Corpuscular Volume 86.5 fL (80.0-98.0); Mean Platelet Volume 8.5 fL (9.4-12.3); Monocytes Absolute Auto 0.5 X10*3/uL (0.1-1.2); Monocytes Percent Auto 5.9 % (2-11); Neutrophils Absolute Auto 5.2 x10*3/uL (2.0-8.3); Neutrophils Percent Auto 57.6 % (45-73); Platelet Count 249 X10*3/uL (160-400); Red Blood Count 4.38 X10*6/uL (4.20-5.50)
[2022-10-24 20:59] LABS: Alanine Aminotransferase 158 U/L (0-31); Albumin Level 3.9 g/dL (3.5-5.0); Alkaline Phosphatase 167 U/L (39-117); Anion Gap 13 (12-20); Aspartate Amino Transferase 57 U/L (5-31); Bilirubin Total 0.2 mg/dL (0.0-1.0); Blood Urea Nitrogen 11 mg/dL (9-16); Calcium 9.1 mg/dL (8.4-10.2); Carbon Dioxide 27 mmol/L (22-29); Chloride 99 mmol/L (96-108); Creatinine Clr Calc Pharmacy 89.5; Estimated Glomerular Filt Rate > 60; Glucose Random 106 mg/dL (60-115); Potassium 3.3 mmol/L (3.3-5.1); Sodium 136 mmol/L (135-145); Total Protein 7.3 g/dL (6.5-8.0)
[2022-10-24 21:09] LABS: Troponin-I High Sensitivity < 2.7 ng/L (<3.5-17.0)
[2022-10-24 21:19] LABS: Lipase 20 U/L (8-78)
[2022-10-24 21:37] VITALS: PULSE 76
[2022-10-24 21:46] LABS: Appearance Urine Clear; Color Urine Yellow; Glucose Urine UA Negative (Negative); Leukocyte Esterase Urine Negative (Negative); Nitrite Urine Negative (Negative); PH 7.5 (5.0-9.0); Urine Blood Negative (Negative); Urine Ketones Negative (Negative); Urine Protein Negative (Neg-Trace)
[2022-10-24 22:00] VITALS: BP 142/89; PULSE 70; RESP 22; O2SAT 98
[2022-10-24] MEDS: Sucralfate Oral Suspension 1 GM/10 ML ORAL.SUSP PO (22:16)
[2022-10-24] MEDS: amLODIPine Besylate 10 MG TABLET PO (22:38)
== END 2022-10-25 00:34 | disposition home or self-care (01) ==
PROVIDERS: Physician Assistant; Emergency Provider Student in an Organized Health Care Education/Training Program
DX: R07.89 Other chest pain (principal); M79.602 Pain in left arm; K29.70 Gastritis, unspecified, without bleeding; Z79.899 Other long term (current) drug therapy
CPT/HCPCS: 36415; 71045; 80053; 81003; 83690; 83735; 84484; 85025; 93005; 99283; 99285

== ENCOUNTER 2023-01-02 13:00 | Outpatient (AMB) | payer MEDICARE, MEDICAID, SELFPAY ==
--- NOTE | 2023-01-02 13:30 | AM.OFFWIN_ITS ---
Intake Vital Signs 01/02/23 13:33 Height 5 ft Weight 166 lb BMI 32.4 BP 142/84 H Blood Pressure Location Rt brachial Position Sitting Pulse 104 H Pulse Source Pulse Oximeter Temp 98.2 F Temp Source Temporal Artery Scan Pulse Oximetry (%) 97 Intake Visit Reasons: [employer]/bee sting right hand Intake Note: pt is here for c/o bee sting on finger 9 days of swelling. also complains of coughing, chills, been exposed to covid from boyfriend, oldest child has covid and other daughter has viral infection Patient Tobacco Use Status: Current everyday Tobacco user Allergies No Known Allergies [No Known Allergies*] Allergy (Verified 01/02/23 13:33) Do you need a note to return to daycare/school/sports/work: Yes HPI HPI Comments History of Present Illness Details 42-year-old female presents with multipl e complaints. Patient was stung by bee 9 days ago playing a finger pain. In addition patient has been exposed to COVID has cough runny nose off and on chills. She would like a COVID test as well as a strep test. [facility] Medical History Major depression in complete remission Major psychotic depression, recurrent Suicidal behavior with attempted self-injury Social History Alcohol intake: current Alcohol intake frequency: holidays/special occasions only Patient Tobacco Use Status: Current everyday Tobacco user Review of Systems Const All systems reviewed & are unremarkable except as noted in HPI and below ENT Reports sore throat Resp Reports cough Physical Exam Vital Signs: Last Vital Signs Temp 98.2 F 01/02/23 13:33 Pulse 104 H 01/02/23 13:33 BP 142/84 H 01/02/23 13:33 Pulse Ox 97 01/02/23 13:33 BMI result Body Mass Index 32.4 Const General: cooperative, no acute distress and alert Orientation/consciousness: patient oriented x3 Limitations: no limitations HEENT Head: Yes normal to inspection Ears: hearing grossly normal bilaterally and external ears normal General nose exam: Normal external nose present Eyes General: appearance normal, both eyes and all related structures Neck Neck: Yes normal visual inspection Chest Chest palpation & inspection: normal inspection of the chest Resp Effort & Inspection: normal respiratory effort, able to speak in complete sentences and no audible wheezes Cardio Rate: regular rate GI Inspection: Yes normal to inspection Palpation (GI): Soft to palpation and nontender Skin General skin exam: no rashes or lesions noted Neuro General: patient oriented x3 Psych Appearance: grossly normal Mental Status: mental status grossly normal Speech and movement: Normal speech and movement present Affect: normal affect Attitude: cooperative Thought process: Normal thought process present Thought content: Normal thought content present Assessment & Plan Assessment & Plan (1) URI (upper respiratory infection): Code(s): J06.9 - Acute upper respiratory infection, unspecified Qualifiers: URI type: unspecified viral URI Qualified Code(s): J06.9 - Acute upper respiratory infection, unspecified Plan patient's signs symptoms and presentation most consistent with a viral URI. Versus COVID-19 versus strep throat. Will provide COVID is fretful swabs. With regard to patient's finger given 9 days ago no evidence of fluid collection abscess or obvious stinger over recommend symptomatic treatment with ice. Will follow up with resultant positive prescribe appropriate therapy. Discharge instructions, follow up and treatment are discussed with patient in my usual fashion. Alternatives in treatment are also discussed. The patient will return for worsening symptoms or as needed. Advised that any labs/imaging ordered will be followed up on and contact made if further treatment needed. Counseled that patient's condition may require further evaluation and/or treatment. Symptoms of concern for worsening disorder discussed in detail in my customary manner. Patient does verbalize understanding of the plan, there are no apparent barriers to communication. The patient is given the opportunity to ask questions and have them answered to his/her satisfaction Orders: Orders AMB Rapid Strep Screen Today Z13.9 - Encounter for screening, unspecified [facility] Covid-19 Ag Today J06.9 - Acute upper respiratory infection, unspecified Coding Level of Care Code Est Pt Level 3 (35928) Diagnoses Viral upper respiratory tract infection J06.9 URI type: unspecified viral URI
[2023-01-02 13:33] VITALS: BP 142/84; PULSE 104; TEMP 36.8; O2SAT 97; BMI 32.4
== END 2023-01-02 14:19 | disposition home or self-care (01) ==
PROVIDERS: Visit Provider Physician Assistant
DX: J02.9 Acute pharyngitis, unspecified (principal); J06.9 Acute upper respiratory infection, unspecified
CPT/HCPCS: 87880; 99213

== ENCOUNTER 2023-01-02 14:17 | Outpatient (REF) | payer MEDICARE, MEDICAID, SELFPAY ==
[2023-01-02 14:41] LABS: Binax Internal Control QC Valid; Binax Now Covid-19 Ag Negative (Negative)
== END 2023-01-02 14:18 | disposition home or self-care (01) ==
LOC: HO.HMGCLDS 14:17
PROVIDERS: Visit Provider Physician Assistant
DX: J06.9 Acute upper respiratory infection, unspecified (principal); Z20.822 Contact with and (suspected) exposure to COVID-19
CPT/HCPCS: 87811; C9803

== ENCOUNTER 2023-03-05 12:07 | Outpatient (AMB) | payer MEDICARE, MEDICAID, SELFPAY ==
--- NOTE | 2023-03-05 13:23 | AM.OFFWIN_ITS ---
Intake Vital Signs 03/05/23 13:24 Height 5 ft Weight 166 lb BMI 32.4 BP 134/72 Blood Pressure Location Rt brachial Position Sitting Pulse 88 Pulse Source Pulse Oximeter Temp 96.9 F Temp Source Temporal Artery Scan Pulse Oximetry (%) 100 Oxygen Delivery Method Room Air Intake Visit Reasons: EST/right knee pain (lobby) Intake Note: Pt is here c/o right knee pain. Pt states no falls but she has banged her knee. Pt states she also has arthritis. Patient Tobacco Use Status: Current everyday Tobacco user Allergies No Known Allergies [No Known Allergies*] Allergy (Verified 03/05/23 13:23) HPI HPI Comments History of Present Illness Details patient is a 43-year-old female in today for sick visit. Patient states that for the past 2 weeks she has experienced right knee pain. Denies any trauma to the area. Patient does have a past medical history significant for osteoarthritis of both knees. Patient states the pain feels more intense than arthritis, and that she is getting little relief with Motrin and Tylenol. Denies any tingling or numbness. Patient is able to bear weight on the affected knee in tandem walk. right knee strength is +5, popliteal and pedal pulses are +2. Skin is warm and dry normal for ethnicity. Some crepitus and cracking noted during range of motion harley uvers. Patient has full range of motion of the joint.There is point tenderness over the right patella. Patient likely has exacerbation of osteoarthritis of the right knee. However due to point tenderness over the right patella will obtain x-ray to rule out fracture. This is unlikely to be a venous arterial occlusion, a neurovascular compromise, or poses a threat to the limb. Patient will be referred to physical therapy. patient has been educated about the side effects and effects of Tylenol on the liver. Will be prescribed meloxicam for 10 days, for symptom relief. Patient has been educated on signs of worsening symptoms and when to return to the walk-in clinic or when to report to the emergency room. Patient has been instructed to follow-up with her primary care provider. [facility] Medical History (Updated 03/05/23 @ 14:06 by BROCK Sanchez) Osteoarthritis Suicidal behavior with attempted self-injury Major psychotic depression, recurrent Major depression in complete remission Social History Alcohol intake: current Alcohol intake frequency: holidays/special occasions only Patient Tobacco Use Status: Current everyday Tobacco user Review of Systems Const All systems reviewed & are unremarkable except as noted in HPI and below Denies frequent falls Musc Reports as per HPI Skin/Breast Reports as per HPI Neuro Denies frequent falls Physical Exam Vital Signs: Last Vital Signs Temp 96.9 F 03/05/23 13:24 Pulse 88 03/05/23 13:24 BP 134/72 03/05/23 13:24 Pulse Ox 100 03/05/23 13:24 Oxygen Delivery Method Room Air 03/05/23 13:24 BMI result Body Mass Index 32.4 Vital signs have been reviewed and are stable Const General: cooperative and no acute distress Orientation/consciousness: patient oriented x3 Limitations: no limitations HEENT Head: Yes normocephalic Neuro General: patient oriented x3 Gait exam (Neuro): Normal gait present Motor exam (neuro): 5/5 motor strength present throughout Assessment & Plan Assessment & Plan (1) Osteoarthritis: Comment: patient will be referred to physical therapy. Patient will also be given meloxicam to assist with pain. She has been educated on side effects of medication. Has been educated on signs and worsening symptoms and when to present to the emergency room. Patient is agreeable to this plan. Code(s): M19.90 - Unspecified osteoarthritis, unspecified site Qualifiers: Osteoarthritis location: knee Osteoarthritis type: primary Laterality: right Qualified Code(s): M17.11 - Unilateral primary osteoarthritis, right knee Orders: Orders PT Evaluation and Treatment Today M19.90 - Unspecified osteoarthritis, unspecified site XR knee RT 4V Today M25.561 - Pain in right knee Medications: New meloxicam 15 mg PO DAILY 10 tabs 0RF Coding Level of Care Code New Pt Level 4 (07580) Diagnoses Primary osteoarthritis of right knee M17.11 Osteoarthritis location: knee Osteoarthritis type: primary Laterality: right Time Spent (min) 30
[2023-03-05 13:24] VITALS: BP 134/72; PULSE 88; TEMP 36.1; O2SAT 100; BMI 32.4
== END 2023-03-05 14:56 | disposition home or self-care (01) ==
PROVIDERS: Visit Provider Nurse Practitioner Primary Care
DX: M17.11 Unilateral primary osteoarthritis, right knee (principal)
CPT/HCPCS: 99204

== ENCOUNTER 2023-03-05 13:56 | Outpatient (REF) | payer MEDICARE, MEDICAID, SELFPAY ==
--- NOTE | ~2023-03-05 | XR_ITS ---
EXAMINATION: XR KNEE, RIGHT CLINICAL INFORMATION: Pain COMPARISON: None available. TECHNIQUE: Four views of the right knee. FINDINGS: No acute finding. No fracture or dislocation. No significant effusion. No bony erosion. No significant degenerative change. XR/XR knee RT 4V IMPRESSION: No acute finding.
== END 2023-03-05 13:57 | disposition home or self-care (01) ==
LOC: HO.HMGCX 13:56
PROVIDERS: PCP Physician Assistant Medical; Visit Provider Nurse Practitioner Primary Care
DX: M25.561 Pain in right knee (principal)
CPT/HCPCS: 73564

== ENCOUNTER 2024-06-15 10:55 | Emergency (ER) | payer MEDICARE, MEDICAID, SELFPAY ==
--- NOTE | ~2024-06-15 | CT_ITS ---
EXAMINATION: CT ABDOMEN AND PELVIS WITH CONTRAST CLINICAL INFORMATION: Abdominal pain COMPARISON: CT dated October 15, 2022. TECHNIQUE: Multidetector volumetric images were obtained from the superior aspect of the liver through the pubic symphysis following administration 85 mL of Omnipaque 350 intravenous contrast. Sagittal and coronal reformatted images were obtained on the technologist's workstation. Oral contrast: No This CT examination was performed using dose optimization techniques as appropriate, variously including the following: *Automated exposure control *Adjustment of mA and/or kV according to patient size (this includes techniques or standardized protocols for targeted exams where dose is matched to indication/reason for exam; i.e. extremities or head) *Use of iterative reconstruction technique DLP: 598 mGy centimeters. FINDINGS: LUNG BASES: No acute airspace disease. Nonspecific subcentimeter subpleural nodules in the left lung base. LIVER, GALLBLADDER, AND BILIARY TREE: Liver measures 17 cm. No focal mass. Portal veins and hepatic veins and intrahepatic portion of the IVC are patent. Status post cholecystectomy. Common bile duct measures 4 mm. PANCREAS: No focal mass. No peripancreatic fluid collection. No main pancreatic ductal dilatation. SPLEEN: 7 cm. No focal lesion. ADRENAL GLANDS: No nodular lesions. KIDNEYS AND URETERS: No hydronephrosis. No gross nephrolithiasis. No gross renal mass. BLADDER: Fluid-filled. GASTROINTESTINAL TRACT: Abundant stool within the large intestine. No intestinal obstruction pattern. I do not see the appendix. No pneumatosis intestinalis. No ascites. No pneumoperitoneum. No peripheral enhancing fluid collections, peritoneal cavity. ABDOMINAL WALL: Small fat-containing umbilical hernia. LYMPH NODES: No gross lymphadenopathy VASCULAR: Irregular mixed plaques throughout the abdominal aorta wall and iliac arteries without aneurysm or dissection. Reduced IV contrast enhanced lumen of the distal abdominal aorta and the iliac arteries. PELVIC VISCERA: I do not see the uterus likely prior hysterectomy. OSSEOUS STRUCTURES: Intervertebral disc spacer placement with associated endplate irregularity and sclerosis at L4-5. Focal blastic lesion in the right acetabulum, likely bony island. CT/CT abdomen pelvis w IV con IMPRESSION: Abundant stool within the large intestine without intestinal obstruction pattern. Small fat-containing umbilical hernia. Hepatomegaly, mild. Atherosclerosis disease with the probable focal high degree stenosis in the distal abdominal aorta and proximal/common iliac arteries. Status post intervertebral disc spacer effacement at L4-5 with the acute subacute inflammatory process. Fleischner guidelines were followed. Electronically signed by: Neville Gil MD 06/15/2024 01:41 PM [facility]
--- NOTE | ~2024-06-15 | US_ITS ---
EXAMINATION: Ultrasound pelvic ovarian Doppler. Limited. CLINICAL INFORMATION: Abdominal pain. Left-sided. COMPARISON: November 12, 2009. Correlated to CT dated June 15, 2024. TECHNIQUE: Real-time ultrasound of the pelvis with the transabdominal and transvaginal approach using a grayscale and color Doppler technique. FINDINGS: I do not see the uterus. I do not see the right ovary. There appears to be a structure in the left adnexa that measures 2 cm without gross solid or cystic lesion. No free fluid in the lower pelvis. US/US pelvic and transvaginal IMPRESSION: Limited examination demonstrated no gross free fluid solid or cystic lesion in the pelvis. Electronically signed by: Neville Gil MD 06/15/2024 03:50 PM LIAT
--- NOTE | ~2024-06-15 | US_ITS ---
EXAMINATION: Ultrasound pelvic ovarian Doppler. Limited. CLINICAL INFORMATION: Abdominal pain. Left-sided. COMPARISON: November 12, 2009. Correlated to CT dated June 15, 2024. TECHNIQUE: Real-time ultrasound of the pelvis with the transabdominal and transvaginal approach using a grayscale and color Doppler technique. FINDINGS: I do not see the uterus. I do not see the right ovary. There appears to be a structure in the left adnexa that measures 2 cm without gross solid or cystic lesion. No free fluid in the lower pelvis. US/US pelvic ovarian doppler IMPRESSION: Limited examination demonstrated no gross free fluid solid or cystic lesion in the pelvis. Electronically signed by: Neville Gil MD 06/15/2024 03:50 PM LIAT
[2024-06-15 11:00] VITALS: BP 189/125; PULSE 98; RESP 18; TEMP 36.8; O2SAT 99; BMI 29.2
--- NOTE | 2024-06-15 11:02 | ED.ABDPAIN ---
HPI - Abdominal Pain General Chief Complaint: Abdominal Pain Stated Complaint: Lower Ab Pain Time Seen by Provider: 06/15/24 11:41 History of Present Illness ED Provider: Dr. Reynolds HPI narrative: 44 y/o F patient; PMH nephrolithiasis; presents from home reporting left-sided abdominal/flank pain with associated nausea and pain with urination. She states approx 24 - 48 hours of symptoms. She is also concerned because despite taking her blood pressure medications her blood pressure has been elevated. She otherwise denies: fever or chills, SOB, cough/congestion, syncope, chest pain. Related Data Home Medications ?Medication ?Instructions ?Recorded ?Confirmed albuterol sulfate 90 mcg/actuation 2 puff inhalation Q6H PRN Wheezing 01/26/20 01/26/20 aerosol inhaler atorvastatin 40 mg tablet 40 mg PO BEDTIME 01/26/20 01/26/20 chlorthalidone 50 mg tablet 50 mg PO QAM 01/26/20 01/26/20 gabapentin 600 mg tablet 600 mg PO BID 01/26/20 01/26/20 losartan 100 mg tablet 100 mg PO DAILY 01/26/20 01/26/20 leuprolide 3.75 mg intramuscular mg IM 07/20/20 syringe kit Previous Rx's ?Medication ?Instructions ?Recorded amlodipine 10 mg tablet 10 mg PO DAILY 30 days #30 tabs 01/28/20 bupropion HCl 150 mg 24 hr tablet, 150 mg PO DAILY #30 tabs 01/28/20 extended release metoprolol succinate 100 mg 100 mg PO BEDTIME 30 days #30 tabs 01/28/20 tablet,extended release 24 hr trazodone 100 mg tablet 100 mg PO BEDTIME PRN Insomnia 30 01/28/20 days #30 tabs pyridoxine (vitamin B6) 100 mg 100 mg PO DAILY 90 days #90 tabs 07/20/20 tablet dicyclomine 20 mg tablet 20 mg PO TID PRN abdominal pain 10/15/22 #20 tabs omeprazole 40 mg capsule,delayed 40 mg PO DAILY #30 caps 10/24/22 release meloxicam 15 mg tablet 15 mg PO DAILY #10 tabs 03/05/23 Allergies Allergy/AdvReac Type Severity Reaction Status Date / Time No Known Allergies Allergy Verified 06/15/24 11:05 [No Known Allergies*] Review of Systems Review of Systems Yes all other systems are reviewed and are negative PMFSH Past Medical History Attestation statement: The following information was validated with the patient. Source: old records reviewed Medical History Osteoarthritis Suicidal behavior with attempted self-injury Major psychotic depression, recurrent Major depression in complete remission Social History Social History Alcohol intake: current Alcohol intake frequency: holidays/special occasions only Patient Tobacco Use Status: Current everyday Tobacco user Smoked in Last 30 Days: Yes Use of substances other than those prescribed or required for medical reasons: No Advance Directives: No Advance Directives Information Provided: No Do you have a plan to hurt others: No Plan Patient : No Physical Exam ED Vital Signs: Vital Signs - 24 hr 06/15/24 11:00 06/15/24 13:37 Temperature 98.2 F 97.1 F Pulse Rate 98 81 Respiratory Rate 18 18 Blood Pressure 189/125 H 179/107 H Pulse Oximetry 99 97 Oxygen Delivery Method Room Air Room Air BMI result Body Mass Index 29.2 Patient is afebrile, hemodynamically stable, and quite hypertensive Const General: cooperative HENMT Head: Yes normal to inspection and Yes atraumatic Eyes General: appearance normal, both eyes and all related structures Pupils: Equal, round and reactive pupils present EOM: EOMs intact bilaterally Neck Neck: Yes normal visual inspection, Yes full ROM, Yes supple and No tender Chest Chest palpation & inspection: normal inspection of the chest and normal palpation of entire chest wall Resp Effort & Inspection: normal respiratory effort, able to speak in complete sentences, no cough and no respiratory distress Auscultation: clear to auscultation bilaterally Cardio Rate: regular rate Rhythm: regular rhythm Peripheral pulses: Peripheral pulses 2+ throughout GI Inspection: No Abdominal wall edema and No distended Palpation (GI): Soft to palpation, not firm, nontender, no guarding and not rigid Back/Spine/Pelvis Back: No back tenderness Neuro Cranial nerves: Yes Equal, round and reactive pupils present Course Course Course Narrative: This is an RME: Additional HPI, ROS, PE not included below will be deferred to primary provider. RME assessment and note performed by: Jordana Alexander PA-C This is a [id number]-female, with a hx of HTN, who presents to the ER with a complaint of lower abdominal pain, nausea x 1 day. She states that she has had urinary urgency and frequency. Reports her symptoms started yesterday. Reporting intermittent dizziness. BP 208/133, repeat 201/130 189/125. She took metoprolol, amlodipine, and spirolactone this morning. No recent missed dosages of her BP meds. Plan: Labs, EKG, CT abd/pelvis. Reevaluation(s) Reevaluation #1: Reviewed triage orders. Labs notable for: No leukocytosis. UA with large blood. No significant WBC. Remainder of labs unremarkable for acute abnormalities. Provided pain control with tylenol and morphine, zofran for nausea. Patient required 2nd dose of Morphine 4mg IV while waiting for CT results. CT Abdomen/Pelvis notable for constipation and incidental atherosclerotic disease. Ordered for US Pelvis. US Pelvis unremarkable for acute abnormalities. Plan: Discharge to home with PCP follow up Return precautions given Medical Decision Making Lab Data 06/15/24 11:34 06/15/24 11:34 Labs: Lab Results 06/15/24 Range/Units 11:34 WBC 7.8 (4.8-10.8) X10*3/uL RBC 4.80 (4.20-5.50) X10*6/uL Hgb 14.2 (12.0-16.0) g/dl Hct 41.8 (37.0-47.0) % MCV 87.1 (80.0-98.0) fL MCH 29.6 (27.0-33.0) pg MCHC 34.0 (31.0-35.0) g/dl RDW 14.6 (11.0-16.0) % Plt Count 220 (160-400) X10*3/uL MPV 9.2 L (9.4-12.3) fL Immature Gran % (Auto) 0.4 (0.0-0.4) % Neut % (Auto) 61.8 (45-73) % Lymph % (Auto) 28.5 (20-40) % [place] % (Auto) 6.2 (2-11) % Eos % (Auto) 2.2 (0-4) % Baso % (Auto) 0.9 (0-2) % Lymph # (Auto) 2.2 (1.2-4.9) X10*3/uL [place] # (Auto) 0.5 (0.1-1.2) X10*3/uL Eos # (Auto) 0.2 (0.0-0.4) X10*3/uL Baso # (Auto) 0.1 (0.0-0.2) X10*3/uL Abs Immat Gran (auto) 0.03 (0.00-0.03) X10*3/uL Absolute Neuts (auto) 4.8 (2.0-8.3) x10*3/uL Absolute Nucleated RBC 0.000 (0.0-0.012) X10*3/uL Nucleated RBC % (auto) 0.0 (0.0-0.2) /100WBC Sodium 141 (135-145) mmol/L Potassium 4.2 (3.3-5.1) mmol/L Chloride 106 (96-108) mmol/L Carbon Dioxide 25 (22-29) mmol/L Anion Gap 14 (12-20) BUN 14 (9-16) mg/dL Creatinine 0.81 (0.5-1.4) mg/dL Estim Creat Clear Calc 76.9 Estimated GFR > 60 Random Glucose 96 (60-115) mg/dL Calcium 9.4 (8.4-10.2) mg/dL Total Bilirubin 0.3 (0.0-1.0) mg/dL Direct Bilirubin 0.1 (0.0-0.5) mg/dL AST < 6 (5-31) U/L ALT 11 (0-31) U/L Alkaline Phosphatase 124 H (39-117) U/L Troponin I High Sens < 2.7 (<3.5-17.0) ng/L Total Protein 7.9 (6.5-8.0) g/dL Albumin 4.3 (3.5-5.0) g/dL Lipase 25 (8-78) U/L Beta HCG, Quant < 2 mIU/mL Urine Color Yellow Urine Appearance Clear Urine pH 5.5 (5.0-9.0) Ur Specific [place] >= 1.030 H (1.005-1.025) Urine Protein Negative (Neg-Trace) mg/dL Urine Glucose (UA) Negative (Negative) mg/dL Urine Ketones Negative (Negative) mg/dL Urine Blood Large (3+) H (Negative) Urine Nitrite Negative (Negative) Ur Leukocyte Esterase Negative (Negative) Urine RBC 11-20 H (0-2) /HPF Urine WBC 0-5 (0-5) /HPF Ur Squamous Epith Cells 0-2 (0-2) /HPF Urine Bacteria None Seen (None Seen) Hyaline Casts 0-2 (0-2) /LPF Influenza Type A (PCR) NEGATIVE (Negative) Influenza Type B (PCR) NEGATIVE (Negative) RSV RNA Qual (PCR) NEGATIVE (Negative) SARS-CoV-2 RNA (RT-PCR) NEGATIVE (Negative) Independent Interpretation I performed an independent interpretation of an: EKG Interpretation: NSR 89BPM without ischemic changes, normal intervals Radiology Impression Discussion of test interpretation with radiology: I have reviewed the radiologist's reading. Radiologist Impression: CT ABDOMEN AND PELVIS WITH CONTRAST CLINICAL INFORMATION: Abdominal pain COMPARISON: CT dated October 15, 2022. TECHNIQUE: Multidetector volumetric images were obtained from the superior aspect of the liver through the pubic symphysis following administration 85 mL of Omnipaque 350 intravenous contrast. Sagittal and coronal reformatted images were obtained on the technologist's workstation. Oral contrast: No This CT examination was performed using dose optimization techniques as appropriate, variously including the following: *Automated exposure control *Adjustment of mA and/or kV according to patient size (this includes techniques or standardized protocols for targeted exams where dose is matched to indication/reason for exam; i.e. extremities or head) *Use of iterative reconstruction technique DLP: 598 mGy centimeters. FINDINGS: LUNG BASES: No acute airspace disease. Nonspecific subcentimeter subpleural nodules in the left lung base. LIVER, GALLBLADDER, AND BILIARY TREE: Liver measures 17 cm. No focal mass. Portal veins and hepatic veins and intrahepatic portion of the IVC are patent. Status post cholecystectomy. Common bile duct measures 4 mm. PANCREAS: No focal mass. No peripancreatic fluid collection. No main pancreatic ductal dilatation. SPLEEN: 7 cm. No focal lesion. ADRENAL GLANDS: No nodular lesions. KIDNEYS AND URETERS: No hydronephrosis. No gross nephrolithiasis. No gross renal mass. BLADDER: Fluid-filled. GASTROINTESTINAL TRACT: Abundant stool within the large intestine. No intestinal obstruction pattern. I do not see the appendix. No pneumatosis intestinalis. No ascites. No pneumoperitoneum. No peripheral enhancing fluid collections, peritoneal cavity. ABDOMINAL WALL: Small fat-containing umbilical hernia. LYMPH NODES: No gross lymphadenopathy VASCULAR: Irregular mixed plaques throughout the abdominal aorta wall and iliac arteries without aneurysm or dissection. Reduced IV contrast enhanced lumen of the distal abdominal aorta and the iliac arteries. PELVIC VISCERA: I do not see the uterus likely prior hysterectomy. OSSEOUS STRUCTURES: Intervertebral disc spacer placement with associated endplate irregularity and sclerosis at L4-5. Focal blastic lesion in the right acetabulum, likely bony island. CT/CT abdomen pelvis w IV con IMPRESSION: Abundant stool within the large intestine without intestinal obstruction pattern. Small fat-containing umbilical hernia. Hepatomegaly, mild. Atherosclerosis disease with the probable focal high degree stenosis in the distal abdominal aorta and proximal/common iliac arteries. Status post intervertebral disc spacer effacement at L4-5 with the acute subacute inflammatory process. Fleischner guidelines were followed. Electronically signed by: Neville Gil MD 06/15/2024 01:41 PM EST RP EXAMINATION: Ultrasound pelvic ovarian Doppler. Limited. CLINICAL INFORMATION: Abdominal pain. Left-sided. COMPARISON: November 12, 2009. Correlated to CT dated June 15, 2024. TECHNIQUE: Real-time ultrasound of the pelvis with the transabdominal and transvaginal approach using a grayscale and color Doppler technique. FINDINGS: I do not see the uterus. I do not see the right ovary. There appears to be a structure in the left adnexa that measures 2 cm without gross solid or cystic lesion. No free fluid in the lower pelvis. US/US pelvic ovarian doppler IMPRESSION: Limited examination demonstrated no gross free fluid solid or cystic lesion in the pelvis. Electronically signed by: Neville Gil MD 06/15/2024 03:50 PM EST RP Medications Administered Discontinued Medications Generic Name Dose Route Start Last Admin Trade Name Freq PRN Reason Stop Dose Admin Acetaminophen 975 mg 06/15/24 12:08 06/15/24 12:32 Acetaminophen 325 Mg Tablet PO 06/15/24 12:09 975 mg ONCE ONE Administration Iohexol 85 ml 06/15/24 13:24 06/15/24 13:24 Iohexol 350 Mg/Ml 75 Ml Infus..Btl IV 06/15/24 13:25 85 ml ONCE ONE Administration Morphine Sulfate 4 mg 06/15/24 12:08 06/15/24 12:33 Morphine Sulfate 4 Mg/Ml Cartridge IVPUSH 06/15/24 12:09 4 mg ONCE ONE Administration Protocol Morphine Sulfate 4 mg 06/15/24 13:44 06/15/24 14:29 Morphine Sulfate 4 Mg/Ml Cartridge IVPUSH 06/15/24 13:45 4 mg ONCE ONE Administration Protocol Ondansetron HCl 4 mg 06/15/24 12:08 06/15/24 12:33 Ondansetron Hcl 4 Mg/2 Ml Vial IVPUSH 06/15/24 12:09 4 mg ONCE ONE Administration Discharge Plan Discharge Clinical Impression: Constipation Patient Disposition: Home, Self-Care Instructions: Constipation (DC) Additional Instructions: We did lab work, urine, CT Abdomen/Pelvis, and US Pelvis today which any significant findings other than some blood in your urine and significant constipation. Please follow up with your PCP within the next 1 - 2 days for re-evaluation and to discuss your recent emergency department visit. Prescriptions: No Action atorvastatin 40 mg Tablet 40 mg PO BEDTIME chlorthalidone 50 mg Tablet 50 mg PO QAM albuterol sulfate 90 mcg/actuation Hfa Aerosol Inhaler 2 puff INHALATION Q6H PRN (Reason: Wheezing) gabapentin 600 mg Tablet 600 mg PO BID losartan 100 mg Tablet 100 mg PO DAILY trazodone 100 mg tablet 100 mg PO BEDTIME PRN (Reason: Insomnia) 30 Days Qty: 30 0RF metoprolol succinate 100 mg Tablet Extended Release 24 Hr 100 mg PO BEDTIME 30 Days Qty: 30 0RF Protocol: Hold for SBP/HR < HOLD for SBP < : 90 HOLD for HR < : 60 bupropion HCl 150 mg Tablet Extended Release 24 Hr 150 mg PO DAILY Qty: 30 0RF amlodipine 10 mg Tablet 10 mg PO DAILY 30 Days Qty: 30 0RF Protocol: Hold for SBP< HOLD for SBP < : 90 dicyclomine 20 mg tablet 20 mg PO TID PRN (Reason: abdominal pain) Qty: 20 0RF omeprazole 40 mg capsule,delayed release(DR/EC) 40 mg PO DAILY Qty: 30 0RF meloxicam 15 mg tablet 15 mg PO DAILY Qty: 10 0RF Lupron [place] 3.75 mg syringe kit IM pyridoxine (vitamin B6) 100 mg tablet 100 mg PO DAILY 90 Days Qty: 90 1RF Print Language: [place]
--- NOTE | 2024-06-15 11:06 | ECG_ITS ---
Test Reason : DIZZINESS Blood Pressure : */* mmHG Vent. Rate : 89 BPM Atrial Rate : 89 BPM P-R Int : 140 ms QRS Dur : 80 ms QT Int : 376 ms P-R-T Axes : 58 -4 41 degrees QTcB Int : 457 ms Normal sinus rhythm Cannot rule out Anterior infarct (cited on or before 24-Oct-2022) Nonspecific ST and T wave abnormality Abnormal ECG When compared with ECG of 24-Oct-2022 20:28, No significant changes seen Referred By: Jordana Alexander Electronically Signed By: BAUDILIO PAUL
[2024-06-15 11:38] LABS: MANUAL DIFF FLAG NO
[2024-06-15 11:40] LABS: Appearance Urine Clear; Basophils Absolute Auto 0.1 X10*3/uL (0.0-0.2); Basophils Percent Auto 0.9 % (0-2); Color Urine Yellow; Eosinophils Absolute Auto 0.2 X10*3/uL (0.0-0.4); Eosinophils Percent Auto 2.2 % (0-4); Glucose Urine UA Negative (Negative); Hematocrit 41.8 % (37.0-47.0); Hemoglobin 14.2 g/dl (12.0-16.0); Imm Gran Abs Auto 0.03 X10*3/uL (0.00-0.03); Imm Gran Pct Auto 0.4 % (0.0-0.4); Leukocyte Esterase Urine Negative (Negative); Lymphocytes Absolute Auto 2.2 X10*3/uL (1.2-4.9); Lymphocytes Percent Auto 28.5 % (20-40); Mean Corpuscular Hemoglobin 29.6 pg (27.0-33.0); Mean Corpuscular Volume 87.1 fL (80.0-98.0); Mean Platelet Volume 9.2 fL (9.4-12.3); Monocytes Absolute Auto 0.5 X10*3/uL (0.1-1.2); Monocytes Percent Auto 6.2 % (2-11); Neutrophils Absolute Auto 4.8 x10*3/uL (2.0-8.3); Neutrophils Percent Auto 61.8 % (45-73); Nitrite Urine Negative (Negative); PH 5.5 (5.0-9.0); Platelet Count 220 X10*3/uL (160-400); Red Cell Distribution Width 14.6 % (11.0-16.0); Specific Gravity - Urine >= 1.030 (1.005-1.025); UMIC TRIGGER UACC YES; Urine Blood Large (3+) (Negative); Urine Ketones Negative (Negative); Urine Protein Negative (Neg-Trace); White Blood Count 7.8 X10*3/uL (4.8-10.8)
[2024-06-15 11:43] LABS: Bacteria Urine None Seen (None Seen); Hyaline Casts Urine 0-2 /LPF (0-2); Squamous Epithelial Cell Urine 0-2 /HPF (0-2); WBC Urine 0-5 /HPF (0-5)
[2024-06-15 12:11] LABS: Alanine Aminotransferase 11 U/L (0-31); Albumin Level 4.3 g/dL (3.5-5.0); Anion Gap 14 (12-20); Aspartate Amino Transferase < 6 U/L (5-31); Bilirubin Direct 0.1 mg/dL (0.0-0.5); Bilirubin Total 0.3 mg/dL (0.0-1.0); Blood Urea Nitrogen 14 mg/dL (9-16); Calcium 9.4 mg/dL (8.4-10.2); Carbon Dioxide 25 mmol/L (22-29); Chloride 106 mmol/L (96-108); Creatinine Clr Calc Pharmacy 76.9; Estimated Glomerular Filt Rate > 60; Glucose Random 96 mg/dL (60-115); HCG Quantitative < 2 mIU/mL; Lipase 25 U/L (8-78); Potassium 4.2 mmol/L (3.3-5.1); Sodium 141 mmol/L (135-145); Total Protein 7.9 g/dL (6.5-8.0); Troponin-I High Sensitivity < 2.7 ng/L (<3.5-17.0)
[2024-06-15 12:18] LABS: Influenza A PCR NEGATIVE (Negative); Influenza B PCR NEGATIVE (Negative); Resp Syncy Virus RNA Qual PCR NEGATIVE (Negative); SARS COV2 PCR INHOUSE NEGATIVE (Negative)
[2024-06-15] MEDS: Acetaminophen 325 MG TABLET 975 MG PO (12:32)
[2024-06-15] MEDS: ondansetron HCL 4 MG/2 ML VIAL IVPUSH (12:33)
[2024-06-15] MEDS: Morphine Sulfate 4 MG/ML CARTRIDGE IVPUSH ×2 (12:33→14:29)
[2024-06-15 12:57] LABS: Alkaline Phosphatase 124 U/L (39-117)
--- OUTSIDE RECORDS SUMMARY | 2024-06-15 12:58 | XMS_ITS | Data Portability ---
Author Organization [facility] - [facility], [address] Address [address] [place] [address] Assessment No assessment recorded. Plan of Treatment Reminders Order Date Submit Date Provider Last Modified By Organization Details Last Modified Time Details Appointments None recorded. Lab None recorded. Referral emergency medicine referral - Hypertensiv e Crisis. need to rule out acute LA. 2022 023 [email or web address] 1 [facility] Emergency Department, [address] [place], [address], 3 08:04:40 Procedures None recorded. Surgeries None recorded. Imaging XR, foot, 3 or more view 2022 023 [facility], [address] [place], [address], 3 13:58:10 XR, ankle, 3 or more view 2022 023 [facility], [address] [place], [address], 3 19:47:45 Medication Orders None recorded. Patient TargetsNo targets recorded. Patient Instructions Encounter Date Encounter Id Patient Instructions Last Modified By Organization Details Last Modified Time 05/06/2022 [id number] shoulder pain: care instructions Not available 05/06/2022 10:48:21 - As we discussed, you denied having any symptoms of your high blood pressure right now. Please follow up with your primary care provider as soon as possible to get further evaluation and - If you use tobacco or frequent alcohol use you should stop - weight loss can reduce blood pressure - 2 gram low-salt diet - continue medications as discussed your blood pressure is elevated you should follow-up with your Primary -doctor. - For any chest pain, shortness of breath, weakness or numbness to extremities, difficulty speaking, blurred vision, or headache unrelieved by medications you should go to Emergency room as this can be a medical emergency. Not available 05/06/2022 10:48:05 The patient responsible were advised of the risks/ benefits of transfer to the ER for further evaluation / treatment, including but not limited to the possibility of serious medical consequences up to including , and have refused the recommendation. Not available 05/06/2022 10:48:21 07/25/2022 [id number] ice or heat to area whichever feels better elevate affected area if it is a limb alternate ibuprofen, 4 hours later tylenol, 4 hours later back to ibuprofen may wrap for extra support wear tennis shoes or good arch supportive shoes start drawing your ABCs with your injured ankle to help strengthen the ligaments and tendons SEE FAMILY DOCTOR IF PAIN PERSISTS AFTER THE ABOVE TREATMENT--YOU MAY NEED PHYSCIAL THERAPY OR POSSIBLE MRI WITH REFERRAL TO SPECIALIST [email or web address] Not available 07/25/2022 18:14:44 09/06/2022 [id number] foot sprain: car e instructions [email or web address] Not available 09/06/2022 12:48:49 Reason for Referral Emergency Medicine Referral for Hypertensive crisis Hypertensive Crisis. need to rule out acute LA. Hypertensive Crisis. need to rule out acute LA. Referring Physician: Ru Keating, Urgent Care, Encounter Date: 05/06/2022 Results Created Date Observation Date Name Description Value Unit Range Abnormal Flag Note LastModifiedBy Organization Detail LastModifiedTime 07/26/19 23 07/25/2022 XR, ankle , 3 or more view No observ ation record ed. [email or web address] [facility] [address], [place], [address], 07/25/2022 20:03:49 09/07/19 23 09/06/2022 XR, foot, 3 or more view No observ ation record ed. [email or web address] [facility] [address] [place], [address], 09/09/2022 08:26:07 Result Notes None recorded. Problems Name Problem SNOMED Code Status Onset Date Resolution Date Notes Provider Name and Address Organization Details Recorded Time Arthritis 6658611 Active 2022 Margaux Vinod null, PA - [facility] 3 10:22:05 Hypertensive disorder 36066091 Active 2022 Margaux [place] null, PA - [facility] 3 10:22:11 Hypercholestero lemia 64377798 Active 2022 Bryanna Lin null, PA - [facility] 11:54:48 Problem Notes None recorded. Procedures Surgical History Date Name Laterality Status Provider Name and Address Organization Details Recorded Time 07/26/19 23 CRUTCHES-UNDERAR M completed Ru Keating NP [address] [place], [address], PA - [facility] 07/25/2022 18:14:32 07/26/19 23 Domenic Bandage completed Ru Keating NP [address], [place], [address], [place] - [facility] 07/25/2022 18:14:20 hysterectomy completed Margaux Brock PA - [facility] 05/06/2022 10:22:51 Appendectomy completed Margaux Vinod PA - [facility] 05/06/2022 10:23:05 Imaging Results Imaging Date Name Status LastModified by Organiz ation Details LastModified Time 07/25/2022 XR, ankle, 3 or more view completed [email or web address] [facility] [address] [place], [address], 07/25/2022 20:03:49 09/06/2022 XR, foot, 3 or more view completed [email or web address] [facility] [address] [place], [address], 09/09/2022 08:26:07 Procedure Notes None recorded. Medical Equipment None Reported. Allergies No known drug allergies Medications Name Sig Start Date Stop Date Status Note LastModified by Organization Details LastModified Time atorvastati n 40 mg tablet TAKE 1 TABLET BY MOUTH DAILY active Not Available Not Available No t Available atorvastati n 80 mg tablet TAKE 1 TABLET BY MOUTH DAILY 09/06 completed Not Available Not Available Not Available nystatin 100,000 unit/mL oral suspension 09/06 completed Not Available Not Available Not Available acetaminoph en 325 mg tablet TAKE 2 TABLETS BY MOUTH EVERY 4 HOURS FOR 7 DAYS NEEDED FOR PAIN. NOT TO EXCEED 4000 MG/DAY 09/06 completed Not Available Not Available Not Available doxycycline hyclate 100 mg capsule TAKE 1 CAPSULE BY MOUTH TWICE DAILY 09/06 completed Not Available Not Available Not Available clindamycin HCl 300 mg capsule TAKE 1 CAPSULE BY MOUTH THREE TIMES DAILY DIRECTED 09/06 completed Not Available Not Available Not Available trazodone 50 mg tablet TAKE 1 TO 2 TABLETS BY MOUTH AT BEDTIME NEEDED 09/06 completed Not Available Not Available Not Available amitriptyli ne 75 mg tablet TAKE 1 TABLET BY MOUTH AT BEDTIME active Not Available Not Available No t Available sucralfate 100 mg/mL oral suspension SHAKE WELL AND TAKE 10 ML (1 GRAM TOTAL) BY MOUTH BEFORE A MEAL AT BEDTIME. 09/06 completed Not Available Not Available Not Available prednisone 20 mg tablet TAKE 2 TABLETS BY MOUTH EVERY DAY FOR 5 DAYS 09/06 completed Not Available Not Available Not Available metoprolol succinate ER 100 mg tablet,exte nded release 24 hr TAKE 1 TABLET BY MOUTH DAILY active Not Available Not Available No t Available penicillin V potassium 500 mg tablet TAKE 1 TABLET BY MOUTH 3 TIMES A DAY 09/06 completed Not Available Not Available Not Available chlorthalid one 25 mg tablet TAKE 1 TABLET BY MOUTH DAILY active Not Available Not Available No t Available omeprazole 40 mg capsule,del ayed release TAKE 1 CAPSULE BY MOUTH DAILY. active Not Available Not Available No t Available tramadol 50 mg tablet TAKE 1 TAB BY MOUTH EVERY 6 HOURS NEEDED FOR SEVERE PAIN SCALE 7-10 09/06 completed Not Available Not Available Not Available acetaminoph en 500 mg tablet 09/06 completed Not Available Not Available Not Available oxycodone-a cetaminophe n 5 mg-325 mg tablet TAKE 1 TABLET BY MOUTH EVERY 4 TO 6 HOURS NEEDED FOR MODERATE PAIN SCALE 4-6 09/06 completed Not Available Not Available Not Available famotidine 20 mg tablet TAKE 1 TABLET BY MOUTH AT BEDTIME 09/06 completed Not Available Not Available Not Available methocarbam ol 750 mg tablet TAKE 1-2 TABS EVERY 6 HOURS NEEDED FOR ANALGESIA 09/06 completed Not Available Not Available Not Available tamsulosin 0.4 mg capsule TAKE 1 CAPSULE BY MOUTH EVERY DAY 09/06 completed Not Available Not Available Not Available trazodone 100 mg tablet TAKE 1 TO 2 TABLETS BY MOUTH AT BEDTIME NEEDED 09/06 completed Not Available Not Available Not Available amlodipine 10 mg tablet TAKE 1 TABLET BY MOUTH DAILY active Not Available Not Available No t Available cephalexin 500 mg capsule TAKE 1 CAPSULE BY MOUTH THREE TIMES A DAY 09/06 completed Not Available Not Available Not Available ibuprofen 400 mg tablet PLEASE SEE ATTACHED FOR DETAILED DIRECTION S 09/06 completed Not Available Not Available Not Available ergocalcife rol (vitamin D2) 1,250 mcg (50,000 unit) capsule TAKE 1 CAPSULE BY MOUTH EVERY 7 DAYS active Not Available Not Available No t Available ibuprofen 600 mg tablet TAKE 1 TABLET BY MOUTH THREE TIMES DAILY NEEDED FOR MILD PAIN. MAX 2400 MG DAILY 09/06 completed Not Available Not Available Not Available cefuroxime axetil 500 mg tablet TAKE 1 TABLET BY MOUTH TWICE A DAY FOR 7 DAYS 09/06 completed Not Available Not Available Not Available polyethylen e glycol 3350 17 gram/dose oral powder 09/06 completed Not Available Not Available Not Available morphine 15 mg immediate release tablet TAKE 1 TABLET BY MOUTH EVERY 4 HOURS NEEDED FOR PAIN 09/06 completed Not Available Not Available Not Available ondansetron 4 mg disintegrat ing tablet DISSOLVE 1 TABLET BY MOUTH EVERY 8 HOURS NEEDED FOR NAUSEA 09/06 completed Not Available Not Available Not Available losartan 100 mg tablet TAKE 1 TABLET BY MOUTH DAILY active Not Available Not Available No t Available fluticasone propionate 50 mcg/actuati on nasal spray,suspe nsion active Not Available Not Available Not Available amitriptyli ne 100 mg tablet TAKE 1 TABLET BY MOUTH AT BEDTIME 09/06 completed Not Available Not Available Not Available naproxen 500 mg tablet TAKE 1 TABLET BY MOUTH TWICE DAILY NEEDED FOR MODERATE PAIN SCALE 4 TO 6. 09/06 completed Not Available Not Available Not Available diazepam 5 mg tablet TAKE 1 TABLET BY MOUTH THREE TIMES DAILY NEEDED 09/06 completed Not Available Not Available Not Available Ventolin HFA 90 mcg/actuati on aerosol inhaler TAKE 2 PUFF INHALATIO NS EVERY 6 HOURS active Not Available Not Available No t Available oxycodone 5 mg tablet TAKE 1/2 TABLET BY MOUTH EVERY 6 HOURS NEEDED FOR PAIN 09/06 completed Not Available Not Available Not Available escitalopra m 20 mg tablet TAKE 1 AND 1/2 TABLETS BY MOUTH EVERY DAY active Not Available Not Available No t Available atorvastati n active Not Available Not Available Not Available chlorthalid one active Not Available Not Available Not Available amitriptyli ne 09/06 completed Not Available Not Available Not Available amlodipine 09/06 completed Not Available Not Available Not Available losartan active Not Available Not Avai lable Not Available trazodone active Not Available Not Earnestine ilable Not Available metoprolol succinate active Not Available Not Available No t Available gabapentin active Not Available Not Av ailable Not Available escitalopra m oxalate 09/06 completed Not Available Not Available Not Available BinaxNOW COVID-19 Ag Self Test kit TEST DIRECTED TODAY 09/06 completed Not Available Not Available Not Available Paxlovid 300 mg (150 mg x 2)-100 mg tablets in a dose pack TAKE 3 TABLETS BY MOUTH TWICE DAILY FOR 5 DAYS DIRECTED ON PACKAGE 09/06 completed Not Available Not Available Not Available Vitals Date Recorded Body height Body mass index (BMI) Body weight Oxygen saturation Oxygen saturation in Arterial blood by Pulse oximetry Heart rate Respiratory rate Pain severity - 0-10 verbal numeric rating [Score] - Reported Body temperature Systolic blood pressure Diastolic blood pressure Provider Name and Address Organization Details Last Updated DateTime 3 152.4 cm 34.2 kg/m2 33187.3 6 g 99 % 99 % 95 /min 20 /min 10 98 [degF] 167 mm[Hg] 111 mm[Hg] Margaux Brock PA - [facility] 3 17:13:07 Date Recorded Body height Body mass index (BMI) Body weight Pain severity - 0-10 verbal numeric rating [Score] - Reported Respiratory rate Body temperature Oxygen saturation Oxygen saturation in Arterial blood by Pulse oximetry Heart rate Systolic blood pressure Diastolic blood pressure Provider Name and Address Organization Details Last Updated DateTime 3 152.4 cm 34.2 kg/m2 26532.6 6 g 9 18 /min 97.1 [degF] 80 % 80 % 100 /min 149 mm[Hg] 100 mm[Hg] Bryanna Delia PA - [facility] 3 11:57:09 Date Recorded Body height Body mass index (BMI) Body weight Oxygen saturation Oxygen saturation in Arterial blood by Pulse oximetry Pain severity - 0-10 verbal numeric rating [Score] - Reported Heart rate Respiratory rate Body temperature Systolic blood pressure Diastolic blood pressure Systolic blood pressure Diastolic blood pressure Provider Name and Address Organization Details Last Updated DateTime 3 152.4 cm 32.4 kg/m2 19264.3 3 g 100 % 100 % 4 99 /min 20 /min 98.5 [degF] 184 mm[Hg] 122 mm[Hg] 192 mm[Hg] 124 mm[Hg] Margaux Brock [facility] 3 10:26:15 Social History Question Answer Notes LastModified by Organizat ion Details LastModified Time Tobacco Smoking Status Current Every Day Smoker Margaux christopher PA [facility] 05/06/2022 10:22:42 What Is Your Level Of Alcohol Consumption? Occasional Information not available 05/06/2022 How Many Times Per Week Do You Consume Alcohol? Less Than 1 Time Per Week emonfette Information not available 09/06/2022 Have You Had Direct Contact, Or Contact During Intimacy, With Monkeypox Rash, Scabs, Or Body Fluids From A Person With Monkeypox? No Information not available 05/06/2022 How Much Tobacco Do You Smoke? 2 PPW Information not available 05/06/2022 Do You Use Any Illicit Or Recreational Drugs? No Information not available 05/06/2022 Have You Recently Traveled Abroad? No Information not available 05/06/2022 Do You Or Have You Ever Used Any Other Forms Of Tobacco Or Nicotine? No Information not available 05/06/2022 Sex: Unknown Functional Status None recorded. Mental Status None recorded. Family History Relationship Description Onset Age of this Age Resolved Age Notes LastModified by Organization Details LastModified Time Father No current problems or disability Not available 05/06 10:22:22 Mother No current problems or disability Not available 05/06 10:22:22 Medical History No medical history recorded. Gynecological HistoryNo gynecological history recorded. Obstetrics History GPAL:G 0 P 0 0 0 0 Immunizations Vaccine Type Date Status Note Provider Nam e and Address Organization Details Recorded Time Tdap 3 completed Bryanna Lin null, PA - [facility] 09/06/2022 11:48:18 COVID-19, mRNA, LNP-S, PF, 100 mcg/0.5mL dose or 50 mcg/0.25mL dose 1 completed Margaux [place] null, PA - [facility] 05/06/2022 10:20:28 COVID-19, mRNA, LNP-S, PF, 100 mcg/0.5mL dose or 50 mcg/0.25mL dose 1 completed Margaux Vinod null, PA - [facility] 05/06/2022 10:20:28 Influenza, MDCK, quadrivalent, preservative 7 completed Margaux Vinod null, PA - [facility] 07/25/2022 17:09:53 pneumococcal polysaccharide PPV23 7 completed Margaux Vinod null, PA - [facility] 07/25/2022 17:09:53 Tdap 2 completed Margaux [place] null, PA - [facility] 07/25/2022 17:09:53 Influenza, split virus, trivalent, preservative 5 completed Margaux Vinod null, PA - [facility] 07/25/2022 17:09:53 Influenza, split virus, trivalent, preservative 6 completed Margaux [place] null, PA - [facility] 07/25/2022 17:09:53 Influenza, split virus, trivalent, preservative 3 completed Margaux Vinod null, PA - [facility] 07/25/2022 17:09:53 Influenza, split virus, trivalent, preservative 1 completed Margaux Vinod null, PA - [facility] 07/25/2022 17:09:53 Td (adult), 5 Lf tetanus toxoid, preservative free, adsorbed 7 completed Margaux [place] null, PA - [facility] 07/25/2022 17:09:53 Influenza, split virus, quadrivalent, PF 3 completed Margaux [place] null, PA - [facility] 07/25/2022 17:09:53 Influenza, split virus, quadrivalent, PF 0 completed Margaux Vinod null, PA - [facility] 07/25/2022 17:09:53 Past Encounters Encounter ID Performer Location Encounter Start Date Encounter Closed Date Diagnosis/Indication Diagnosis SNOMED-CT Code Diagnosis ICD10 Code Diagnosis Note [id number] [address] [place] [address] 12/09/2021 15:15:08 12/09/2021 17:50:19 [id number] [address] [place] [address] 01/30/2022 13:59:31 01/30/2022 19:53:09 [id number] [address] [place] [address] 03/13/2016 12:22:03 03/13/2016 13:15:19 [id number] [address] [place] [address] 06/30/2017 15:34:41 06/30/2017 16:22:02 [id number] [address] [place] [address] 01/24/2022 08:58:23 01/24/2022 10:08:16 [id number] [address] [place] [address] 07/04/2020 15:59:24 07/04/2020 16:42:18 [id number] Ru Keating NP [address] [address] 05/06/2022 10:02:30 05/06/2022 10:58:57 Hypertensive crisis [id number] I16.9 refusing to go to Emergency Room . stating she wants to get left shoulder X-ray. Patient was strongly advised to go to [facility] - ED for further evaluation and treatmnet. Second Blood pressure reading 230/125 mmhg. [id number] Ru Keating NP [address] [address] 07/25/2022 16:04:13 07/25/2022 18:19:03 Sprain of left ankle 1230216382 [id number] S93.402A [id number] [place] [address] [address] 09/06/2022 09:19:49 09/06/2022 13:13:29 Sprain of ligament of metatarsophalangeal joint of great toe 603564588 S93.521A Error the side is the Left Great ToeXray showed no fracture Your x-ray will be reviewed by a radiologis t. You will be notified of any discrepanc ies between findings discussed at your visit today and the radiology interpreta tion. Health Concerns Section Related Observation LastModified by Organization Detai ls LastModified Time None Recorded Concern Status LastModified by Organization Details LastModified Time None Recorded Advance Directives Directive None Recorded Payers Encounter Date Sequence Insurance Name Policy Number Policy [place] Covered Member ID [place] Member ID Guarantor Name 01/24/2022 1 [place] [employer] Araseli Devlin [id number] Araseli Devlin 01/24/2022 2 [place] [facility] Araseli Devlin [id number] Araseli Devlin 01/30/2022 1 [place] [employer] Araseli Devlin [id number] Araseli Haq Devlin 01/30/2022 2 [place] Araseli Devlin [id number] Araseli Haq Devlin 05/06/2022 1 [place] [employer] Araseli Haq Devlin [id number] Araseli Haq Devlin 05/06/2022 2 [place] Araseli Devlin [id number] Araseli Haq Devlin 07/25/2022 1 [place] [employer] Araseli Haq Devlin [id number] Araseli Haq Devlin 07/25/2022 2 [place] Araseli Devlin [id number] Araseli Haq Devlin 09/06/2022 1 [place] [facility] Araseli Haq Devlin [id number] Araseli Haq Devlin 09/06/2022 2 [place] [facility] Araseli Devlin [id number] Araseli Devlin Notes Date Note Type Note Provider Name and Address Organization Details Recorded Time 05/06/2022 text/html Shoulder UCReported bypatient.Notes:c hest pressure and pain . left shoulder pain x 1 day. High blood pressure. Ru Keating NP [address] [facility] [place], [address], [place] - [facility] 05/06/2022 10:51:39 07/25/2022 text/html left foot pain after fall now left ankle swollen and painful ROM Ru Keating NP [address] [facility] [place], [address], PA - [facility] 07/30/2022 18:20:57 09/06/2022 text/html Foot/Ankle UCReported bypatient.Locatio n:left Problemswelling Associated Symptoms:no weakness; no numbness; no tingling; no warmth; no ecchymosis;swelli ngNotes:tripped over something at home, immediate pain, able to walk. Pain is the left great toe Lucy Hi MD [address] [place], [address], PA - [facility] 09/07/2022 08:17:00 OBGyn Episode No OBEpisode recorded.
--- OUTSIDE RECORDS SUMMARY | 2024-06-15 12:58 | XMS_ITS | Continuity of Care Document ---
Author Organization [facility] ter Address [address] [place] [id number]- Support Name Relationship Address Phone ALISA, ANKUSH Personal Relationship Unknown Unavai lable CUELLAR, ANKUSH Personal Relationship Unknown Unavai lable ADILENE, XAVIER Other Unknown Unavailable CUELLAR, ANKUSH Personal Relationship Unknown Unavai lable WALSH, CIRO sibling Unknown Unavailable CUELLAR, ANKUSH Personal Relationship Unknown Unavai lable CUELLAR, ANKUSH Personal Relationship Unknown Unavai lable CUELLAR, ANKUSH Personal Relationship Unknown Unavai lable CUELLAR, ANKUSH Personal Relationship Unknown Unavai lable CUELLAR, ANKUSH Personal Relationship Unknown Unavai lable CUELLAR, ANKUSH Personal Relationship Unknown Unavai lable CUELLAR, ANKUSH Personal Relationship Unknown Unavai lable CUELLAR, ANKUSH Personal Relationship Unknown Unavai lable CUELLAR, ANKUSH Personal Relationship Unknown Unavai lable CUELLAR, ANKUSH Personal Relationship Unknown Unavai lable CUELLAR, ANKUSH Personal Relationship Unknown Unavai lable CUELLAR, ANKUSH Personal Relationship Unknown Unavai lable CUELLAR, ANKUSH Personal Relationship Unknown Unavai lable CUELLAR, ANKUSH Personal Relationship Unknown Unavai lable CUELLAR, ANKUSH Personal Relationship Unknown Unavai lable CUELLAR, ANKUSH Personal Relationship Unknown Unavai lable CUELLAR, ANKUSH Personal Relationship Unknown Unavai lable CUELLAR, ANKUSH Personal Relationship Unknown Unavai lable CUELLAR, ANKUSH Personal Relationship Unknown Unavai lable CUELLAR, ANKUSH Personal Relationship Unknown Unavai lable CUELLAR, ANKUSH Personal Relationship Unknown Unavai lable CUELLAR, ANKUSH Personal Relationship Unknown Unavai lable CUELLAR, ANKUSH Personal Relationship Unknown Unavai lable CUELLAR, ANKUSH Personal Relationship Unknown Unavai lable ADILENE NOEL domestic partner Unknown Unavaila ble Care Team Providers Care Receiving And Processing Supervisor Name Role Phone Marcel Duran Primary Care Physician ( [phone] Encounter [facility] [id number] Date(s): 05/15/24 - 05/15/[address] [id number]- Encounter Diagnosis AP (abdominal pain)(Final) - 05/16/24 Discharge Disposition: A-D/C Home Attending Physician: Neptali Turner MD Admitting Physician: Neptali Turner MD Referring Physician: Not on Staff, Referring MD Encounter Type: Disch ES Allergies, Adverse Reactions, Alerts No Known Allergies Immunizations Given and Recorded Vaccine Date Status Refusal Reason Influenza Vaccine (oldterm) 1 03/16/10 Given Influenza Vaccine (oldterm) 2 01/04/09 Given influ virus vac, H1N1, inactive(oldterm) 3 02/10/09 Given Pneumococcal Poly (PPV23) (oldterm) 4 03/30/08 Giv en Influenza Inactive (IM) (oldterm) 5 03/30/08 Given influenza virus vaccine, inactivated 6 07/03/07 Gi arvind influenza virus vaccine, inactivated 04/09/06 Give n influenza virus vaccine, inactivated 02/20/05 Give n influenza virus vaccine, inactivated 03/04/96 Give n tetanus-diphtheria toxoids (Td) 7 02/16/07 Given tetanus-diphtheria toxoids (Td) 11/28/94 Given Hepatitis B Vaccine (old term) 09/01/97 Given Hepatitis B Vaccine (old term) 06/23/97 Given Hepatitis B Vaccine (old term) 12/13/96 Given Measles/Mumps/Rubella Virus Vaccine 12/09/91 Given Measles/Mumps/Rubella Virus Vaccine 05/28/82 Given Haemophilus B Conjugate Vac (oldterm) 06/29/85 Giv en diphtheria/tetanus/pertussis, acel(DTaP) 06/29/85 Given diphtheria/tetanus/pertussis, acel(DTaP) 08/25/82 Given diphtheria/tetanus/pertussis, acel(DTaP) 81 Given diphtheria/tetanus/pertussis, acel(DTaP) 81 Given Poliovirus Vaccine, Inactivated 06/29/85 Given Poliovirus Vaccine, Inactivated 81 Given Poliovirus Vaccine, Inactivated 81 Given 1Admin Note: VIS GIVEN [id number] 2Admin Note: VIS GIVEN 2008- 3Admin Note: VIS GIVEN - 01/27/2009 4Admin Note: VIS GIVEN 11/23/06 5Admin Note: VIS 6Result Comment: lot [id number] 7Admin Note: VIS 10/05/93 Medications Albuterol (Eqv-ProAir HFA) 90 mcg/inh inhalation aerosol 2 puffs, Inhalation, Every 6 hours, # 6.7 Gm, 0 Refills, Maintenance, 06/23/22 1:34:00 PM EST, [facility]/pharmacy #[id number], Partial fill upon patient request if the prescription is for a schedule II opioid drug., 2 puffs Inhalation Every 6 hours, 152, cm, 06/23/22 12:57:00 EST, Height, 73, kg, 06/15/22 8:31:00 EST, Dry Weight Start Date: 06/23/22 Status: Ordered Quantity: 6.7 Unit: g Repeat number: 1 amitriptyline 100 mg oral tablet 1 tablet = 100 mg, By Mouth, Daily at bedtime, # 30 tablet, 0 Refills, Maintenance, 11/30/22 6:43:00 PM EDT, Tablet, Partial fill upon patient request if the prescription is for a schedule II opioid drug. Start Date: 11/30/22 Status: Ordered Quantity: 30.0 Unit: tablet Repeat number: 1 amLODIPine 10 mg oral tablet 1 tablet = 10 mg, By Mouth, Daily, Maintenance, 09/22/22 5:58:00 PM EDT, Tablet, Partial fill upon patient request if the prescription is for a schedule II opioid drug. Start Date: 09/22/22 Status: Ordered Repeat number: 1 atorvastatin 80 mg oral tablet 1 tablet = 80 mg, By Mouth, Daily, Maintenance, 09/22/22 5:58:00 PM EDT, Tablet, Partial fill upon patient request if the prescription is for a schedule II opioid drug. Start Date: 09/22/22 Status: Ordered Repeat number: 1 chlorthalidone 25 mg oral tablet 25 mg, 1, tablet, By Mouth, Daily, # 30 tablet, Refills 0, Maintenance, 11/30/22 6:45:00 PM EDT, Partial fill upon patient request if the prescription is for a schedule II opioid drug. Start Date: 11/30/22 Status: Ordered Quantity: 30.0 Unit: tablet Repeat number: 1 diazepam 5 mg oral tablet 5 mg, 1, tablet, By Mouth, Every 6 hours, PRN, Refills 0, Maintenance, as needed for anxiety, 10/07/23 5:13:00 PM EDT, Partial fill upon patient request if the prescription is for a schedule II opioiddrug. Start Date: 10/07/23 Status: Ordered Repeat number: 1 escitalopram 20 mg oral tablet 1.5 tablet = 30 mg, By Mouth, Daily, Maintenance, 09/22/22 6:00:00 PM EDT, Tablet, Partial fill uponpatient request if the prescription is for a schedule II opioid drug. Start Date: 09/22/22 Status: Ordered Repeat number: 1 losartan 100 mg oral tablet 1 tablet = 100 mg, By Mouth, Daily, Maintenance, 09/22/22 6:00:00 PM EDT, Tablet, Partial fill upon patient request if the prescription is for a schedule II opioid drug. Start Date: 09/22/22 Status: Ordered Repeat number: 1 Metoprolol Succinate ER 100 mg oral tablet, extended release 1 tablet = 100 mg, By Mouth, Daily, Maintenance, 09/22/22 6:01:00 PM EDT, ER Tablet, Partial fill upon patient request if the prescription is for a schedule II opioid drug. Start Date: 09/22/22 Status: Ordered Repeat number: 1 OxyCODONE IR Tablet 5 mg, Tablet, By Mouth, Once, STAT, 05/15/24 10:00:00 PM EST, Stop date 05/15/24 10:25:12 PM EST Start Date: 05/15/24 Stop Date: 05/15/24 Status: Completed Repeat number: 1 Physical therapy Physical therapy, See Instructions, # 1 each, Refills 0, Tot. Refills 0, Maintenance, Physical therapy Diagnosis: PLater fasciitis ICD 10 - M79.672, 09/23/22 11:33:00 AM EDT, Supply Start Date: 09/23/22 Status: Ordered Quantity: 1.0 Unit: each Repeat number: 1 spironolactone 25 mg oral tablet 50 mg, By Mouth, Daily, Refills 0, Maintenance, 09/22/22 11:37:00 AM EDT, Partial fill upon patient request if the prescription is for a schedule II opioid drug. Start Date: 09/22/22 Status: Ordered Repeat number: 1 traZODone 100 mg oral tablet 100 mg, 1, tablet, By Mouth, Daily at bedtime, # 180 tablet, Refills 0, Maintenance, 11/30/22 6:43:00PM EDT, Partial fill upon patient request if the prescription is for a schedule II opioid drug. Start Date: 11/30/22 Status: Ordered Quantity: 180.0 Unit: tablet Repeat number: 1 Vitamin D3 oral tablet 2 tablet = 20 mcg, By Mouth, Daily, # 60 tablet, 0 Refills, Maintenance, 10/07/23 5:12:00 PM EDT, Tablet, Partial fill upon patient request if the prescription is for a schedule II opioid drug. Start Date: 10/07/23 Status: Ordered Quantity: 60.0 Unit: tablet Repeat number: 1 Problem List Condition Confirmation Course Effective Dates Status H ealth Status Informant Abdominal Pain Confirmed 11/15/10 Active Dysplasia of cervix Confirmed Active Hyperlipidemia Confirmed Active Hypertension Confirmed Active Hypertensive crisis Confirmed Active Migraine Confirmed Active Polycystic ovary syndrome Confirmed Active RSO - Right salpingo-oophorectomy 1 Confirmed Active Vaginal hysterectomy, Dr Castellano Confirmed 05/30/10 [address] [facility] Dr. Castellano: for persistent RLQ and pelvic pain. found to have right ovarian complex with adhesions to bowel and adhesions between bowel and the anterior abdominal wall. pelviscopy with right SO and lysis of adhesions done. Results Radiology Reports * Exam Date Time Procedure Performing Provider Status 05/15/24 9:[address] Abdomen and Pelvi s W/O Contrast Izabela Montano; Auth (Verified) Notes: (CT Abdomen and Pelvis W/O Contrast) Reason For Exam: Flank pain, kidney stone suspected;Other: RESULT: CT Abdomen and Pelvis W/O Contrast CT Abdomen and Pelvis W/O Contrast Hx of Present Illness: Pt reporting LUQ pain x 4 days, ryan flank pain, denies hematuria or dysuria,states has history of kidney stones; Reason: Flank pain, kidney stone suspected; Clinical Question(s): Calculus; Left Side flank TECHNIQUE: Spiral CT through the abdomen and pelvis without IV contrast formatted in 3 planes. Thisstudy was performed without oral contrast. Weight- based protocol using automatic tube modulation was used to optimize exposure parameters. CTDIvol Body: 5.40 mGy, DLP Body: 240 mGy*cm. COMPARISON: Multiple priors, most recent CT abdomen and pelvis 04/20/2024 FINDINGS: White Kid Buffer View Findings, Lines and Tubes: None. Visualized Chest: The visualized costophrenic angles are clear. No pleural effusion. Diaphragm: Partially imaged. Intact. Liver: The included portion is normal. Gallbladder: Absent consistent with prior cholecystectomy. Bile ducts: No biliary ductal dilation. Spleen: Normal. Pancreas: Normal. Adrenal glands: Normal. Kidneys and ureters: Nonobstructing 2 mm right renal stone, unchanged. No hydronephrosis or noncontrast evidence of suspicious masses. Bladder: Underdistended, limiting evaluation. Otherwise unremarkable. Reproductive organs: Status post hysterectomy. Otherwise unremarkable. Stomach, small bowel, and large bowel: Unremarkable stomach, small and large bowel. No evidence of bowel obstruction or acute inflammation. Appendix: Not seen, but no evidence of appendicitis. Peritoneum and retroperitoneum: No ascites or pneumoperitoneum. No omental or mesenteric lesions. Lymph nodes: No enlarged lymph nodes. Blood vessels: Mild vascular calcifications but no aneurysm. Abdominal and pelvic wall: Unremarkable. Bones: No acute abnormality. Unchanged appearance of L4-L5 fusion. IMPRESSION: No acute abnormality in the abdomen and pelvis. No hydronephrosis or ureteral calculus. Unchanged nonobstructing 2 mm right renal stone. I have personally reviewed the images and I agree with this report. WSN: [id number] Ordering Physician: Neptali Turner Dictated By: Kristine Jerry MD Dictated Date/Time: 05/15/24 10:25 p Reviewed By: Carolina Malave MD Signed By: Carolina Malave MD Signed Date/Time: 05/15/24 10:30 pm Transcribed By: BRENDAN Transcribed Date/Time: 05/15/24 10:18 pm Vital Signs Most recent to oldest [Reference Range]: 1 2 Height 152.4 cm (05/15/24 8:20 PM) 152.4 cm (05/15/24 8:04 PM) Weight 68.1 kg (05/15/24 8:20 PM) 68.1 kg (05/15/24 8:04 PM) Oxygen Saturation [94-100 %] 100 % (05/15/24 10:24 PM) 99 % (05/15/24 8:04 PM) Pulse Rate [55-90 bpm] 65 bpm (05/15/24 10:24 PM) 76 bpm (05/15/24 8:04 PM) Body Mass Index [18.5-24.99 kg/m2] 29.32 kg/m2 *H* (05/15/24 8:04 PM) Blood Pressure [90-138/55-84 mm Hg] 139/ 78mm Hg *H* (05/15/24 10:24 PM) 157/106mm Hg *H* (05/15/24 8:04 PM) Respiratory Rate [16-30 br/min] 18 br/mi n (05/15/24 10:24 PM) 18 br/min (05/15/24 8:04 PM) Temperature [96.8-100.4 DegF] 98.4 DegF (05/15/24 8:04 PM) Mode of Delivery (Oxygen) Room air (05/15/24 10:24 PM) Room air (05/15/24 8:04 PM) Blood pressure sites Arm, left (05/15/24 10:24 PM) Arm, left (05/15/24 8:04 PM) Temperature Route Oral (05/15/24 8:04 PM) Dry Weight 68.1 kg (05/15/24 8:20 PM) 68.1 kg (05/15/24 8:04 PM) Weight Obtained Via Standing scale (05/15/24 8:04 PM) Dry Weight Obtained Via Standing scale (05/15/24 8:04 PM) Social History Social History Type Response Smoking Status 5-9 cigarettes (betw een 1/4 to 1/2 pack)/day in last 30 days entered on: 06/15/22 Sex Female Sex Representation Female (finding) Patient Care team information Care Team Personnel Name: Jeorme Cabrera RN Position: [facility] RN Member Role: Primary Care Nurse Name: Beverly Meng RN Position: [facility] ED RN W/OE and Tasks Member Role: Primary Care Nurse Name: Juliane Oshea RN Position: [facility] RN Member Role: Primary Care Nurse Name: Iliana Enciso RN Position: [facility] AMB Nurse Member Role: Primary Care Nurse Name: Lindsey Colbert RN Position: [facility] RN Member Role: Primary Care Nurse Name: Marlen Fraser RN Position: [facility] RN Member Role: Primary Care Nurse Name: Arun Pompa DO Position: Reference Physician Member Role: [employer] Physician Address: [address] [place] [id number] [place] [employer]: Name: Sotero Benavidez RN Position: S RN Member Role: Primary Care Nurse Name: Marcel Duran Position: Reference Physician Member Role: PCP Address: [address] [place] [id number]- Telecom: Care Team Related Persons Name: NOEL HEAD Name: XAVIER HEAD Insurance Providers Guarantor name: ANKUSH CUELLAR Health Plan Information #: 1 Payer: MEDICARE PART B OUTPT Member Number: [id number] Policy Number: NA Group Number: NA Health Plan Information #: 2 Payer: [employer] [facility] Member Number: [id number] Policy Number: NA Group Number: NA
--- OUTSIDE RECORDS SUMMARY | 2024-06-15 12:58 | XMS_ITS | Continuity of Care Document ---
Author Organization [facility] ter Address [address] [place] [address]- Support Name Relationship Address Phone ALISA, ANKUSH [...] ANKUSH Personal Relationship Unknown Unavai lable ADILENE, NOEL domestic partner Unknown Unavaila ble Care Team Providers Care Sheet Combining Operator Name Role Phone Marcel Duran Primary Care Phys[id number] Date(s): 05/20/24 - 05/21/[address] [id number]- Encounter Diagnosis Contusion(Final) - 05/21/24 Discharge Disposition: A-D/C Home Attending Physician: Rayna Campbell MD Admitting Physician: Rayna Campbell MD Referring Physician: Not on Staff, Referring [...] Inactivated 81 Given 1Admin Note: VIS GIVEN [id number] 2Admin Note: VIS GIVEN 2008- 3Admin Note: VIS GIVEN - 01/27/2009 4Admin Note: VIS GIVEN 11/23/06 5Admin Note: VIS 6Result Comment: lot [id number] 7Admin Note: VIS 10/05/93 Medications acetaminophen 325 mg oral tablet 975 mg, 3, tablet, By Mouth, Every 6 hours, PRN, for 7 days, # 84 tablet, Refills 0, Tot. Refills 0, Acute 05/28/24 1:42:00 AM EST, Pain , Moderate, 05/21/24 1:42:00 AM EST, Route to Pharmacy Electronically, [id number], Partial fill upon patient request if the prescription is for a schedule II opioid drug., 152.4, cm, 05/15/24 20:20:00 EST, Height, 68.9, kg, 05/20/24 21:27:00 EST, Dry Weight Start Date: 05/21/24 Stop Date: 05/28/24 Status: Ordered Quantity: 84.0 Unit: tablet Repeat number: 1 Albuterol (Eqv-ProAir HFA) 90 mcg/inh inhalation aerosol 2 puffs, Inhalation, Every 6 hours, # 6.7 Gm, 0 Refills, Maintenance, 06/23/22 1:34:00 PM EST, [facility]/pharmacy #[id number], Partial fill upon patient request if the [...] Date: 09/22/22 Status: Ordered Repeat number: 1 ibuprofen 200 mg oral tablet 600 mg, 3, tablet, By Mouth, Every 6 hours, PRN, for 3 days, # 50 tablet, Refills 0, Tot. Refills 0, Acute 05/24/24 1:42:00 AM EST, for pain, 05/21/24 1:42:00 AM EST, Route to Pharmacy Electronically, [facility] #[id number], Partial fill upon patient request if the prescription is for a scheduleII opioid drug., 152.4, cm, 05/15/24 20:20:00 EST, Height, 68.9, kg, 05/20/24 21:27:00 EST, Dry Weight Start Date: 05/21/24 Stop Date: 05/24/24 Status: Ordered Quantity: 50.0 Unit: tablet Repeat number: 1 losartan 100 mg oral tablet 1 tablet = 100 mg, By Mouth, Daily, Maintenance, 09/22/22 6:00:00 PM EDT, Tablet, Partial fill upon patient request if the prescription is for a schedule II opioid drug. Start Date: 09/22/22 Status: Ordered Repeat number: 1 losartan 50 mg oral tablet 100 mg, Tablet, By Mouth, Once, Routine, 05/21/24 1:00:00 AM EST, Stop date 05/21/24 1:15:13 AM EST Start Date: 05/21/24 Stop Date: 05/21/24 Status: Completed Repeat number: 1 Metoprolol Succinate ER 100 mg oral tablet, extended release 1 tablet = 100 mg, By Mouth, Daily, Maintenance, 09/22/22 6:01:00 PM EDT, ER Tablet, Partial fill upon patient request if the prescription is for a schedule II opioid drug. Start Date: 09/22/22 Status: Ordered Repeat number: 1 MorPHINE Immediate Release Tablet 15 mg, Tablet, By Mouth, Once, STAT, 05/21/24 1:08:00 AM EST, Stop date 05/21/24 1:15:14 AM EST Start Date: 05/21/24 Stop Date: 05/21/24 Status: Completed Repeat number: 1 oxyCODONE 5 mg oral tablet 5 mg, Tablet, By Mouth, Once, STAT, 05/20/24 11:27:00 PM EST, Stop date 05/20/24 11:39:18 PM EST Start Date: 05/20/24 Stop Date: 05/20/24 Status: Completed Repeat number: 1 Physical therapy [...] Vaginal hysterectomy, Dr Castellano Confirmed 05/30/[address] [facility] [address] Castellano: for persistent RLQ and pelvic pain. found to have right ovarian complex with adhesions to bowel and adhesions between bowel and the anterior abdominal wall. pelviscopy with right SO and lysis of adhesions done. Results Radiology Reports * Exam Date Time Procedure Performing Provider Status 05/21/24 1:40 AM Wrist Comp Min 3 Views Right Casey Penny ylroosevelt; Auth (Verified) Notes: (Wrist Comp Min 3 Views Right) Reason For Exam: with Pain;Trauma RESULT: Wrist Comp Min 3 Views Right Right wrist 4 views dated May 21, 2024. No prior studies are available. HISTORY: Pain. FINDINGS: This examination shows no evidence of fracture or dislocation. Joint spaces are well preserved. No radiopaque foreign body or soft tissue gas is noted. No joint effusion is seen. IMPRESSION: Negative examination. Examination [id number]. Thank you for allowing me to participate in the care of this patient. WSN: [id number] Ordering Physician: Rayna Campbell Dictated By: Filippo Lopez MD Dictated Date/Time: 05/21/24 8:01 am Reviewed By: Filippo Lopez MD Signed By: Filippo Lopez MD Signed Date/Time: 05/21/24 8:01 am Transcribed By: BRENDAN Transcribed Date/Time: 05/21/24 8:01 am * Exam Date Time Procedure Performing Provider Status 05/21/24 12:50 AM Forearm 2 Views Right Aubrie Penny (Verified) Notes: (Forearm 2 Views Right) Reason For Exam: Trauma RESULT: Forearm 2 Views Right Right forearm 2 views dated May 21, 2024. No prior studies are available. HISTORY: Pain. FINDINGS: This examination shows no evidence of fracture or dislocation. No abnormal sclerosis or lucency is appreciated. IMPRESSION: Negative examination. Examination [id number]. Thank you for allowing me to participate in the care of this patient. WSN: [id number] Ordering Physician: Russell Romero Dictated By: Filippo Lopez MD Dictated Date/Time: 05/21/24 7:58 am Reviewed By: Filippo Lopez MD Signed By: Filippo Lopez MD Signed Date/Time: 05/21/24 7:58 am Transcribed By: BRENDAN Transcribed Date/Time: 05/21/24 7:58 am Vital Signs Most recent to oldest [Reference Range]: 1 2 3 Oxygen Saturation [94-100 %] 99 % (05/21/24 1:11 AM) 100 % (05/20/24 9:21 PM) Pulse Rate [55-90 bpm] 87 bpm (05/21/24 1:11 AM) 92 bpm *H* (05/20/24 9:21 PM) Blood Pressure [90-138/55-84 mm Hg] 167/76mm Hg *H* (05/21/24 1:11 AM) 195/121mm Hg *H* (05/20/24 9:21 PM) Respiratory Rate [16-30 br/min] 19 br/min (05/21/24 1:11 AM) 18 br/min (05/20/24 11:39 PM) 18 br/min (05/20/24 9:21 PM) Temperature [96.8-100.4 DegF] 98.8 DegF (05/20/24 9:27 PM) 98.8 DegF (05/20/24 9:21 PM) Mode of Delivery (Oxygen) Room air (05/21/24 1:11 AM) Room air (05/20/24 9:21 PM) Blood pressure sites Arm, left (05/21/24 1:11 AM) Arm, left (05/20/24 9:21 PM) Temperature Route Oral (05/20/24 9:27 PM) Oral (05/20/24 9:21 PM) Dry Weight 68.9 kg (05/20/24 9:27 PM) 68.9 kg (05/20/24 9:21 PM) Social History Social History Type Response Smoking Status 5-9 cigarettes (betw een 1/4 to 1/2 pack)/day in last 30 days entered on: 06/15/22 Sex Female Sex Representation Female (finding) Note * Rayna Campbell MD: PERFORM, SIGN, VERIFY Event Display: Patient Education Handout Authored Date: [id number] * Rayna Campbell MD: PERFORM Event Display: Patient Education Leaflets Authored Date: [id number] Soft Tissue Bruise (Contusion) ?? [id number] Soft Tissue Bruise (Contusion) You have a bruise (contusion). There is swelling and some bleeding under the skin. This injury??generally??takes a few days to a few weeks to heal. During that time, the bruise will typically change in color from??reddish, to purplish- blue, to greenish-yellow, then to yellowish-brown. Home care ??? Elevate the injured area to reduce pain and swelling.??As much as possible, sit or lie down with the injured area raised about the level of your heart.??This is especially important during the first 48 hours. ??? Ice the injured area to help reduce pain and swelling.??Wrap an ice packin a thin towel. Apply to the bruised area for 20 minutes every 1 to 2 hours the first day. Continue this 3 to 4 times a day until the pain and swelling goes away. You can make an ice pack by placingice cubes in a plastic bag, or by using a frozen bag of vegetables. ??? Unless another medicine wasprescribed, you can take acetaminophen, ibuprofen, or naproxen??to control pain. Talk [facility] before using these medicines if you have chronic liver or kidney disease or ever had a stomach ulcer or digestive bleeding. ?? Follow-up care Follow up with your healthcare provider, or as advised. Call if you are not better in 1 to 2 weeks. ?? When to seek medical advice?? Call your healthcare provider right away if any of the following occur: ??? Increased pain or swelling ??? Bruise is on an arm or leg, and arm or leg becomes cold, blue, numb, or tingly ??? Signs of infection:??Warmth, drainage, or increased redness or pain around the contusion ??? Inability to move the injured area or body part? Bruise is near your eye, and you have problems with your eyesight or eye? Frequent bruising for unknown reasons ?? Last Reviewed Date: 2021 ?? [id number] [employer]. All rights reserved. This information is not intended as a substitute for professional medical care. Always follow your healthcare professional's instructions. ?? Patient Care team information Care Team Personnel Name: Jerome Cabrera RN Position: [facility] RN Member Role: Primary Care Nurse Name: Beverly Meng RN Position: [facility] ED RN W/OE and Tasks Member Role: Primary Care Nurse Name: Juliane Oshea RN Position: [facility] RN Member Role: Primary Care Nurse Name: Iliana Enciso RN Position: [facility] AMB Nurse Member Role: Primary Care Nurse Name: Lindsey Colbert RN Position: [facility] RN Member Role: Primary Care Nurse Name: Marlen Fraser RN Position: [facility] RN Member Role: Primary Care Nurse Name: Arun Pompa DO Position: Reference Physician Member Role: [employer] Consulting Physician Address: [address] [place] [id number] Telecom: Name: Sotero Benavidez RN Position: [facility] RN Member Role: Primary Care Nurse Name: Marcel Duran Position: Reference Physician Member Role: PCP Address: [address] [place] [id number] Telecom: Care Team Related Persons Name: NOEL HEAD Name: XAVIER HEAD Insurance Providers Guarantor name: ANKUSH CUELLAR Health Plan Information #: 1 Payer: [employer] Member Number: [id number] Policy Number: NA Group Number: NA Health Plan Information #: 2 Payer: [employer] Member Number: [id number] Policy Number: NA Group Number: NA
--- OUTSIDE RECORDS SUMMARY | 2024-06-15 12:58 | XMS_ITS | Encounter Summary ---
Author Organization [employer] Address [address] [place] [address] Care Team Providers Care Sewer Contractor Name Role Phone Marcel Bass Primary Care Provider [phone] Reason for Visit * Reason Comments Abdominal Pain LLQ ABD PAIN SHARP H /X OVARIAN CYST. BL FLANK PAIN H/X STONES. LEFT KNEE PAIN AND SWELLING Encounter Details Date Type Department Care Team (Late st Contact Info) Description 06/14/2024 6:31 PM EST - 06/15/2024 12:08 AM EST Emergency [facility] Emergency [address] [place] [address] Discharge Disposition: Home or Self Care Social History Tobacco Use Types Packs/Day Years Used Date Smoking Tobacco: Every Day Cigarettes 0.5 27.3 Started: 1997 Smokeless Tobacco: Never Alcohol Use Standard Drinks/Week Comments No 0 (1 standard drink = 0.6 oz pur e alcohol) Comments No Sex and Gender Information Value Date Recorded Sex Assigned at Not on file Legal Sex Female 12:49 AM EST Gender Identity Not on file Sexual Orientation Not on file documented as of this encounter Last Filed Vital Signs Vital Sign Reading Time Taken Comments Blood Pressure 180/110 06/14/2024 6:34 PM EST hx HTN, pt states it's been like this Pulse 99 06/14/2024 6:34 PM EST Temperature 36.4 ??C (97.5 ??F) 06/14/2024 6 :34 PM EST Respiratory Rate 18 06/14/2024 6:34 PM EST Oxygen Saturation 99% 06/14/2024 6:3 4 PM EST Inhaled Oxygen Concentration - - Weight 65.8 kg (145 lb) 06/14/2024 6:34 PM EST Height 152.4 cm (5') 06/14/2024 6:34 PM EST Body Mass Index 28.32 06/14/2024 6:34 PM EST documented in this encounter Medications at Time of Discharge amLODIPine (NORVASC) 10 mg tablet Take 1 tablet (10 mg total) by mouth 1 (one) time each day. 90 each 1 04/06/2024 atorvastatin (LIPITOR) 80 mg tablet Take 1 tablet (80 mg total) by mouth 1 (one) time each day. 90 each 1 04/08/2024 gabapentin (NEURONTIN) 600 mg tablet Take 1 tablet (600 mg total) by mouth 1 (one) time each day. 90 each 1 04/08/2024 losartan (COZAAR) 100 mg tablet TAKE 1 TABLET(100 MG) BY MOUTH 1 TIME EACH DAY 90 tablet 05/07/2024 metoprolol succinate (TOPROL-XL) 100 mg 24 hr tablet Take 1 tablet (100 mg total) by mouth 1 (one) time each day. 90 each 1 04/06/2024 nicotine (NICODERM CQ) 21 mg/24 hrIndications:To bacco dependency Place 1 patch on the skin 1 (one) time each day at the same time. 30 each 1 04/08/2024 spironolactone (Aldactone) 100 mg tablet Take 1 tablet (100 mg total) by mouth 1 (one) time each day. 90 each 1 04/27/2024 Ventolin HFA 90 mcg/actuation inhaler Inhale 2 puffs by mouth every 4 (four) hours if needed for wheezing or shortness of breath. 18 g 2 04/27/2024 5 documented as of this encounter Discharge Disposition Disposition Code Departure Means Destination Home or Self Care documented in this encounter Progress Notes * Jarocho Parry RN - 06/14/2024 6:34 PM EST PT C/O LLQ ABD PAIN X2 DAYS SHARP H/X OF OVARIAN CYST ALSO BL FLANK PAIN H/X STONES. KNEE PAIN BUT SEEN AT DIAGNOSED WITH JOINT EFFUSSION documented in this encounter Plan of Treatment Upcoming Encounters Date Type Department Care Team (Late st Contact Info) Description 07/26/2024 12:00 PM EDT Office Visit Adult Medicine [facility] [address] [place] [address] Marcel Bass PA [address] [place] [address] Pending Results Name Type Priority Associated Diagnoses Date /Time Culture urine Microbiology STAT 7:55 PM EST Scheduled Orders Name Type Priority Associated Diagnoses Orde r Schedule Culture urine Microbiology Routine Once for 1 Occurrences starting 06/14/2024 until 06/14/2024 documented as of this encounter Procedures Procedure Name Priority Date/Time Associated Diagnosis Comments POC , URINE DIAGNOSTIC STAT 06/14/2024 8:38 PM EST URINALYSIS WITH REFLEX MICROSCOPIC AND CULTURE STAT 06/14/2024 7:55 PM EST CHAVES URINE CULTURE TUBE STAT 06/14/2024 7:55 PM EST URINALYSIS WITH REFLEX MICROSCOPIC AND CULTURE STAT 06/14/2024 7:55 PM EST CBC WITH AUTO DIFFERENTIAL STAT 06/14/2024 7:36 PM EST CBC AND DIFFERENTIAL STAT 06/14/2024 7:36 PM EST LIPASE STAT 06/14/2024 7:36 PM EST COMPREHENSIVE METABOLIC PANEL STAT 06/14/2024 7:36 PM EST documented in this encounter Results * POC , urine manually resulted (06/14/2024 8:38 PM EST) HCG, Ur POC Negative Negative POC hCG Int QC Pass? Yes Yes Urine Urine specimen obtained by clean catch procedure / Unknown 06/14/2024 8:38 PM EST us Eladio Fallon DO POINT OF CARE TEST ENTER/EDIT ORDERABLES Final Result * [place] urine culture tube (06/14/2024 7:55 PM EST) [facility] Extra Tube Hold for add-ons. 06/14/2024 10:03 PM [facility] Comment:Auto resulted. Urine Urine specimen obtained by clean catch procedure / Unknown Non-blood Collection / Unknown 06/14/2024 7:55 PM EST 06/14/2024 8:31 PM EST us Eladio Fallon DO LAB URINE ORDERABLES Final Res ult [facility] [address] [place] [address], [place] [phone] * (ABNORMAL) Urinalysis with reflex microscopic and culture (06/14/2024 7:55 PM EST) [facility] Specific [place] Urine 1.023 1.003 - 1.030 LAB URINALYSIS - AUTOMATED METHOD 06/14/2024 8:40 PM [facility] pH, Urine 6.5 5.0 - 8.0 pH LAB URINALYSIS - AUTOMATED METHOD 06/14/2024 8:40 PM [facility] Leukocytes, Urine Negative Negative LAB URINALYSIS - AUTOMATED METHOD 06/14/2024 8:40 PM [facility] Nitrite, Urine Negative Negative LAB URINALYSIS - AUTOMATED METHOD 06/14/2024 8:40 PM [facility] Protein, Urine 100(A) <=Trace mg/dL LAB URINALYSIS - AUTOMATED METHOD 06/14/2024 8:40 PM [facility] Glucose, Urine Negative Negative mg/dL LAB URINALYSIS - AUTOMATED METHOD 06/14/2024 8:40 PM [facility] Ketones, Urine Trace(A) Negative mg/dL LAB URINALYSIS - AUTOMATED METHOD 06/14/2024 8:40 PM [facility] Urobilinogen , Urine 1.0 0.2 - 1.0 mg/dL LAB URINALYSIS - AUTOMATED METHOD 06/14/2024 8:40 PM [facility] Bilirubin, Urine Negative Negative LAB URINALYSIS - AUTOMATED METHOD 06/14/2024 8:40 PM [facility] Blood, Urine Small(A) Negative LAB URINALYSIS - AUTOMATED METHOD 06/14/2024 8:40 PM [facility] RBC, Urine 26.2(H) 0 - 4 /HPF LAB URINALYSIS - AUTOMATED METHOD 06/14/2024 8:40 PM [facility] WBC, Urine 2.0 0 - 4 /HPF LAB URINALYSIS - AUTOMATED METHOD 06/14/2024 8:40 PM [facility] Squamous Epithelial, Urine >100(H) 0 - 60 /LPF LAB URINALYSIS - AUTOMATED METHOD 06/14/2024 8:40 PM [facility] Bacteria, Urine Moderate(A) Negative /HPF LAB URINALYSIS - AUTOMATED METHOD 06/14/2024 8:40 PM [facility] Hyaline Casts, Urine 1.2 0 - 3 /LPF LAB URINALYSIS - AUTOMATED METHOD 06/14/2024 8:40 PM [facility] Urine Urine specimen obtained by clean catch procedure / Unknown Non-blood Collection / Unknown 06/14/2024 7:55 PM EST 06/14/2024 8:31 PM EST us Eladio Fallon DO LAB URINE ORDERABLES Final Res ult [facility] [address] [place] [address], [place] [phone] * (ABNORMAL) CBC auto differential (06/14/2024 7:36 PM EST) [facility] WBC 9.2 4.8 - 10.8 K/mcL LAB HEMETOLOGY METHOD 06/14/2024 7:47 PM [facility] RBC 4.80 3.80 - 4.80 M/mcL LAB HEMETOLOGY METHOD 06/14/2024 7:47 PM [facility] Hemoglobin 14.1 11.5 - 16.0 g/dL LAB HEMETOLOGY METHOD 06/14/2024 7:47 PM [facility] Hematocrit 42.2 35.0 - 47.0 % LAB HEMETOLOGY METHOD 06/14/2024 7:47 PM [facility] MCV 87.4 79.0 - 98.0 FL LAB HEMETOLOGY METHOD 06/14/2024 7:47 PM [facility] MCH 29.2 27.0 - 32.0 pcg LAB HEMETOLOGY METHOD 06/14/2024 7:47 PM [facility] MCHC 33.4 32.0 - 37.0 g/dL LAB HEMETOLOGY METHOD 06/14/2024 7:47 PM [facility] RDW 14.7 11.0 - 15.0 % LAB HEMETOLOGY METHOD 06/14/2024 7:47 PM [facility] Platelets 227 130 - 400 K/mcL LAB HEMETOLOGY METHOD 06/14/2024 7:47 PM [facility] MPV 9.4 7.0 - 11.0 FL LAB HEMETOLOGY METHOD 06/14/2024 7:47 PM [facility] NRBC 0.0 <1.0 % LAB HEMETOLOGY METHOD 06/14/2024 7:47 PM [facility] NRBC Absolute 0.00 <0.10 K/mcL LAB HEMETOLOGY METHOD 06/14/2024 7:47 PM [facility] Neutrophils Relative 53.4 % LAB HEMETOLOGY METHOD 06/14/2024 7:47 PM [facility] Lymphocytes Relative 36.8 % LAB HEMETOLOGY METHOD 06/14/2024 7:47 PM [facility] Monocytes Relative 5.1 % LAB HEMETOLOGY METHOD 06/14/2024 7:47 PM [facility] Eosinophils Relative 3.4 % LAB HEMETOLOGY METHOD 06/14/2024 7:47 PM [facility] Basophils Relative 0.9 % LAB HEMETOLOGY METHOD 06/14/2024 7:47 PM [facility] Immature Granulocytes Relative 0.4 % LAB HEMETOLOGY METHOD 06/14/2024 7:47 PM [facility] Neutrophils Absolute 4.88 1.50 - 7.00 K/mcL LAB HEMETOLOGY METHOD 06/14/2024 7:47 PM [facility] Lymphocytes Absolute 3.37 1.00 - 5.00 K/mcL LAB HEMETOLOGY METHOD 06/14/2024 7:47 PM [facility] Monocytes Absolute 0.47 0.20 - 1.00 K/mcL LAB HEMETOLOGY METHOD 06/14/2024 7:47 PM [facility] Eosinophils Absolute 0.31 0.00 - 0.50 K/mcL LAB HEMETOLOGY METHOD 06/14/2024 7:47 PM [facility] Basophils Absolute 0.08 0.00 - 0.20 K/mcL LAB HEMETOLOGY METHOD 06/14/2024 7:47 PM [facility] Immature Granulocytes Absolute 0.04(H) 0.00 - 0.03 K/mcL LAB HEMETOLOGY METHOD 06/14/2024 7:47 PM [facility] Blood Venous blood specimen / Unknown Venipuncture / Unknown 06/14/2024 7:36 PM EST 06/14/2024 7:41 PM EST us Eladio Fallon DO LAB BLOOD ORDERABLES Final Res ult Performing Organization Address [facility]/ZIP Co de Phone Number [facility] [address] [place] [address], [place] [phone] * Lipase (06/14/2024 7:36 PM EST) Pathologist [facility] Lipase 34 13 - 75 unit/L LAB CHEMISTRY METHOD 06/14/2024 8:16 PM [facility] Blood Venous blood specimen / Unknown Venipuncture / Unknown 06/14/2024 7:36 PM EST 06/14/2024 7:41 PM EST us Eladio Fallon DO LAB BLOOD ORDERABLES Final Res ult Performing Organization Address [facility] Co de Phone Number [facility] [address] [place] [address], [place] [phone] * (ABNORMAL) Comprehensive metabolic panel (06/14/2024 7:36 PM EST) [facility] Sodium 139 133 - 145 mmol/L LAB CHEMISTRY METHOD 06/14/2024 8:16 PM [facility] Potassium 4.6 3.5 - 5.5 mmol/L LAB CHEMISTRY METHOD 06/14/2024 8:16 PM [facility] Chloride 105 96 - 110 mmol/L LAB CHEMISTRY METHOD 06/14/2024 8:16 PM [facility] CO2 26 21 - 32 mmol/L LAB CHEMISTRY METHOD 06/14/2024 8:16 PM [facility] Anion Gap 8 3 - 11 LAB CHEMISTRY METHOD 06/14/2024 8:16 PM [facility] Glucose 87 70 - 100 mg/dL LAB CHEMISTRY METHOD 06/14/2024 8:16 PM [facility] BUN 10 5 - 25 mg/dL LAB CHEMISTRY METHOD 06/14/2024 8:16 PM [facility] Creatinine 0.79 0.50 - 1.10 mg/dL LAB CHEMISTRY METHOD 06/14/2024 8:16 PM [facility] eGFR 95 >=60 mL/min/1. 73m2 LAB CHEMISTRY METHOD 06/14/2024 8:16 PM [facility] Comment:Calculation based on the??Chronic Kidney Disease Epidemiology Collaboration (CKD-EPI) equation refit??without adjustment for race. BUN/Creatinine Ratio 12.7 LAB CHEMISTRY METHOD 06/14/2024 8:16 PM [facility] Calcium 9.4 8.5 - 10.5 mg/dL LAB CHEMISTRY METHOD 06/14/2024 8:16 PM [facility] AST (SGOT) 15 10 - 42 unit/L LAB CHEMISTRY METHOD 06/14/2024 8:16 PM [facility] ALT (SGPT) 16 10 - 60 unit/L LAB CHEMISTRY METHOD 06/14/2024 8:16 PM [facility] Alkaline Phosphatase 137(H) 42 - 121 unit/L LAB CHEMISTRY METHOD 06/14/2024 8:16 PM [facility] Total Protein 7.6 6.0 - 8.0 g/dL LAB CHEMISTRY METHOD 06/14/2024 8:16 PM [facility] Albumin 4.3 3.2 - 5.0 g/dL LAB CHEMISTRY METHOD 06/14/2024 8:16 PM [facility] Total Bilirubin 0.4 0.0 - 1.4 mg/dL LAB CHEMISTRY METHOD 06/14/2024 8:16 PM [facility] Blood Venous blood specimen / Unknown Venipuncture / Unknown 06/14/2024 7:36 PM EST 06/14/2024 7:41 PM EST Eladio Fallon DO LAB BLOOD ORDERABLES Final Res ult [facility] [address] [place] [address], documented in this encounter Visit Diagnoses Not on filedocumented in this encounter Care Teams Sewer Contractor Relationship Specialty Start Date End Date Marcel Bass PA [address] [place] [address] PCP - General Internal Medicine 04/09/24 documented as of this encounter
--- OUTSIDE RECORDS SUMMARY | 2024-06-15 12:58 | XMS_ITS | Clinical Summary ---
Author Organization [facility] [address] [facility] Building Address [address] [facility] [place] [address] Phone Care Team Providers Care Customer Care Assistant Name Role Phone Marcel Bass Primary Care Provider [phone] Allergies No known active allergies Medications amLODIPine (NORVASC) 10 mg tablet Take 1 tablet (10 mg total) by mouth 1 (one) time each day. 90 each 4 Active metoprolol succinate (TOPROL-XL) 100 mg 24 hr tablet Take 1 tablet (100 mg total) by mouth 1 (one) time each day. 90 each 4 Active atorvastatin (LIPITOR) 80 mg tablet Take 1 tablet (80 mg total) by mouth 1 (one) time each day. 90 each 4 Active gabapentin (NEURONTIN) 600 mg tablet Take 1 tablet (600 mg total) by mouth 1 (one) time each day. 90 each 4 Active nicotine (NICODERM CQ) 21 mg/24 hrIndications:T obacco dependency Place 1 patch on the skin 1 (one) time each day at the same time. 30 each 4 Active spironolactone (Aldactone) 100 mg tablet Take 1 tablet (100 mg total) by mouth 1 (one) time each day. 90 each 4 Active Ventolin HFA 90 mcg/actuation inhaler Inhale 2 puffs by mouth every 4 (four) hours if needed for wheezing or shortness of breath. 18 g 2 4 04/27/20 25 Active losartan (COZAAR) 100 mg tablet TAKE 1 TABLET(100 MG) BY MOUTH 1 TIME EACH DAY 90 tablet 5 Active Active Problems Problem Noted Date Diagnosed Date Idiopathic neuropathy 04/08/2024 Class 1 obesity due to exces s calories with serious comorbidity and body mass index (BMI) of 32.0 to 32.9 in adult 04/07/2024 Other hyperlipidemia 08/08/2022 Pelvic pain 08/24/2019 Overview (04/07/2024): Last Assessment & Plan: I explained to the patient that I have reviewed her notes and results from her three ED visits, visit with Dr. 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 This would include, but is not limited to, bowel, bladder, or other injury. This could result in longer term pain or need for ostomy or transfusion. She was counseled that I would agree with recommendation for Aygestin and that I would recommend she give a trial of at least 6 months before deeming it unsucessful. I explained this is a standard treatment for women with endometriosis and should help prevent formation of future cysts. I explained most common SE include breast tenderness, STEPHENS. Usually self limited and resolve over time. I recommended she schedule her follow up US as Dr. Smiley recommended. I offered her an Rx for naproxen for pain management. She requested something stronger, but I explained this type of pain is usually managed best with anti-inflammatory medications. She eventually agreed. She confirmed no true allergic reaction to NSAIDs. She will return in 6 months and if pain not controlled, could consider increased dose or repeat imaging. Cyst of left ovary 08/24/2019 Overview (04/07/2024): Last Assessment & Plan: I explained the cyst noted on pelvic US which I reviewed from 11/2018 was 1.5 cm and not likely causing her pain. I did, however, recommended we repeat imaging to evaluate again given ongoing pain. Vitamin D deficiency 03/19/2017 Nephrolithiasis 11/18/2016 Mild intermittent asthma without complication Polyarthralgia 06/07/2013 Low back pain 12/02/2012 Headache 12/02/2012 Plantar fasciitis of right foot 10/20/2012 Chronic abdominal pain 10/19/2012 Joyce esophagitis 08/27/2012 Overview (04/07/2024): EGD plus biopsies 08/25/2012. Foot pain, right 07/20/2012 Depression 01/16/2011 HTN (hypertension) 01/16/2011 Overview (04/07/2024): Secondary HTN ruled out Resolved Problems Problem Noted Date Diagnosed Date Resolved Date Hypercalcemia 07/20/2012 04/27/2024 Encounters Date Type Department Care Team Description 06/14/2024 6:31 PM EST - 06/15/2024 12:08 AM EST [facility] Emergency [address] [place] [address] Discharge Disposition: Home or Self Care 06/08/2024 Telephone Obstetrics and Gynecology - [address] [phone] Yesika Dhaliwal CNM 04/27/2024 11:44 AM EST - 04/27/2024 11:59 PM EST Hospital Encounter XRAY - [address] [phone] Pain of right hand Discharge Disposition: Home or Self Care 04/27/2024 11:00 AM EST Office Visit Adult Medicine [facility] - [address] [phone] Woody Spivey MD Hypertension, unspecified type (Primary Dx); Impaired fasting glucose; Idiopathic neuropathy; Mild intermittent asthma without complication; Depression screening negative; Need for prophylactic vaccination and inoculation against influenza; Need for vaccination against Streptococcus pneumoniae; Nephrolithiasis; Pain of right hand 04/22/2024 8:00 PM EST - 04/22/2024 11:45 PM EST [facility] Emergency [address] [place] [phone] Felipe Liz MD [place], Other chest pain (Primary Dx); Acute chest pain Discharge Disposition: Home or Self Care 04/08/2024 10:00 AM EST Office Visit Adult [address] [phone] Woody Spivey MD Hypertension, unspecified type (Primary Dx); Other hyperlipidemia; Mild intermittent asthma without complication; Tobacco dependency; Idiopathic neuropathy 04/05/2024 Telephone Adult Medicine [address] [phone] Woody Spivey MD provider call back 04/05/[address] [phone] Woody Spivey MD Med Refill 04/05/[address] [phone] Woody Spivey MD Med Refill 04/05/2024 Telephone Adult [address] [phone] Woody Spivey MD Med Refill 04/05/2024 [place] Adult [address] [phone] Woody Spivey MD Med Refill 04/05/2024 Telephone Adult Medicine [address] [phone] Woody Spivey MD Med Refill 04/05/2024 [place] Adult [address] [phone] Woody Spivey MD Med Refill from Last 3 Months Immunizations Name Administration Dates Next Due Influenza Quadravalent, MDCK , 0.5ml, preservative free (Flucelvax) 6mo and older 01/03/2023 Influenza Quadravalent, MDCK , 0.5ml, with preservative (Flucelvax) 6mo and older 03/12/2017 Influenza trivalent, 0.5mL, preservative free (Fluarix; FluLaval; Fluzone) ages 6mo and older (Afluria) 3 years and older 05/07/2022,02/09/2016,01/13/2015,03/02 Influenza trivalent, MDCK, 0 .5mL, preservative free (Flucelvax) 6mo and older 04/27/2024 Pneumococcal conjugate 20 va lent (Prevnar 20, PCV 20) 2mo and older 04/27/2024 Pneumococcal polysaccharide 23 valent (Pneumovax 23) 2yo and older 03/12/2017 Tdap Tetanus diptheria acell ular pertussis (Boostrix; Adacel) 7yo and older 08/08/2022,11/12/2011 Surgical History Surgery Date Site/Laterality Comments HYSTERECTOMY 2002 PROCEDURE: HISTORICAL VAGINAL HYSTERECTOMY W/O BSO; COMMENT: only left ovarian remains; for DUB APPENDECTOMY PROCEDURE: HISTORICAL APPENDECTOMY CHOLECYSTECTOMY PROCEDURE: HISTORICAL CHOLECYSTECTOMY ESOPHAGOGASTRODUODENOSCOPY 2012 PROCEDURE: CT EGD TRANSORAL BIOPSY SINGLE/MULTIPLE; COMMENT: esophagus bx: Joyce esophagitis FOOT SURGERY Bilateral PROCEDURE: HISTORICAL FOOT SURGERY BACK SURGERY PROCEDURE: HISTORICAL BACK SURGERY; COMMENT: L4/5 herniated disc; [facility] Medical History Medical History Date Comments HTN (hypertension) DX:HTN (hyper tension) Depression DX:Depression; C OMMENT: no therapist no medication Abdominal pain 07/20/2012 DX:Abdominal sebas n Hypercalcemia 07/20/2012 DX:Hypercalcemia Tobacco abuse 07/20/2012 DX:Tobacco abuse Foot pain, right 07/20/2012 DX:Foot pain, r ight Joyce esophagitis (CMS/HCC) 08/27/2012 DX :Joyce esophagitis (HCC) Chronic abdominal pain 10/19/2012 DX:Chroni c abdominal pain Plantar fasciitis of right foot 10/20/2012 DX:Plantar fasciitis of right foot Low back pain 12/02/2012 DX:Low back pain Headache(784.0) 12/02/2012 DX:Headache(784. 0) Hypercalcemia 07/20/2012 Family History Medical History Relation Name Comments Alcohol abuse Father .liver disease Other: ?lung cancer - smoker Maternal Grandmother Heart attack Mother Hypertension Mother Breast cancer Neg Hx Colon cancer Neg Hx Ovarian cancer Neg Hx Relation Name Status Comments Brother 1 Alive Brother 2 Alive Brother 3 Alive Father etoh abuse young Maternal Grandfather unknown Maternal Grandmother Mother (Age 52) mi,htn Paternal Grandmother Sister Alive Social History Tobacco Use Types Packs/Day Years Used Date Smoking Tobacco: Every Day Cigarettes 0.5 27.3 Started: 1997 Smokeless Tobacco: Never Tobacco Cessation:Ready to Q uit: Not Asked; Counseling Given: Not Answered Alcohol Use Standard Drinks/Week Comments No 0 (1 standard drink = 0.6 oz pur e alcohol) Comments No Sex and Gender Information Value Date Recorded Sex Assigned at Not on file Legal Sex Female 12:49 AM EST Gender Identity Not on file Sexual Orientation Not on file Obstetrics History Last Filed Vital Signs Vital Sign Reading [...] Mass Index 28.32 06/14/2024 6:34 PM EST Plan of Treatment Upcoming Encounters Date Type Department Care Team (Late st Contact Info) Description 07/26/2024 12:00 PM EDT Office Visit Adult Medicine [facility] [address], [place] [phone] Marcel Bass PA [address] [place] [address] Health Maintenance Due Date Last Done Comments Hepatitis A Vaccines (1 of 2 - Risk 2-dose series) 02/09/2000 Medicare Annual Wellness Visit 04/06/2022 Social Influencers of Health Screening 04/06/2022 COVID-19 Vaccine ( season) 2023 09/28/2020, 08/30/2020 Breast Cancer Screening 03/21/2025 03/21/2023, 09/05 Depression Screening 04/27/2025 04/27/2024 Hypertension/CHF/CAD Annual BMP Blood Test 06/14/2025 06/14/2024, 04/27/2024, 04/22/2024, Additional history exists Cholesterol Screening (Lipid Panel) 04/27/2029 04/27/2024, 03/18/2023 DTaP,Tdap,and Td Vaccines (10 - Td or Tdap) 08/08/2032 08/08/2022, 05/03/2016, 11/12/2011, Additional history exists HIB Vaccines Completed 06/29/1985 IPV Vaccines Completed 06/29/1985, 10/27, 1981 MMR Vaccines Completed 12/09/1991, 05/28/1982 Hepatitis B Vaccines Completed 09/01/1997, 06/23/1997, 12/13/1996 HIV Screening Completed 07/05/2019 Hepatitis C Screening Completed 07/05/2019 Influenza Vaccine Completed 04/27/2024, , 05/07/2022, Additional history exists Pneumococcal Vaccine: Pediatrics (0 to 5 Years) and At-Risk Patients (6 to 64 Years) Completed 04/27/2024, 03/12/2017, 03/30/2008 HPV Vaccines Aged Out No longer eligi ble based on patient's age to complete this topic Meningococcal ACWY Vaccine Aged Out N o longer eligible based on patient's age to complete this topic Meningococcal B Vacine Aged Out No lo nger eligible based on patient's age to complete this topic RSV Immunization Patients Under 20 months Aged Out No longer eligible based on patient's age to complete this topic Varicella Vaccines Aged Out No longer eligible based on patient's age to complete this topic Procedures Procedure Name Priority Date/Time Associated Diagnosis Comments POC , URINE DIAGNOSTIC STAT 06/14/2024 8:38 PM EST CHAVES URINE CULTURE TUBE STAT 06/14/2024 7:55 PM EST URINALYSIS WITH REFLEX MICROSCOPIC AND CULTURE STAT 06/14/2024 7:55 PM EST URINALYSIS WITH REFLEX MICROSCOPIC AND CULTURE STAT 06/14/2024 7:55 PM EST CBC WITH AUTO DIFFERENTIAL STAT 06/14/2024 7:36 PM EST LIPASE STAT 06/14/2024 7:36 PM EST COMPREHENSIVE METABOLIC PANEL STAT 06/14/2024 7:36 PM EST CBC AND DIFFERENTIAL STAT 06/14/2024 7:36 PM EST HEMOGLOBIN A1C Routine 04/27/2024 11:57 AM EST Impaired fasting glucose XR HAND 3+ VIEWS RIGHT Routine 04/27/2024 11:50 AM EST Pain of right hand COMPREHENSIVE METABOLIC PANEL Routine 04/27/2024 9:46 AM EST Hypertension, unspecified type LIPID PANEL WITH REFLEX TO DIRECT LDL Routine 04/27/2024 9:46 AM EST Other hyperlipidemia CT ANGIO CHEST WO AND/OR W CONTRAST STAT 04/22/2024 9:56 PM EST Other chest pain TROPONIN I HIGH SENSITIVITY STAT 04/22/2024 4:33 PM EST XR CHEST 2 VIEWS STAT 04/22/2024 4:32 PM EST CBC WITH AUTO DIFFERENTIAL STAT 04/22/2024 1:36 PM EST B-TYPE NATRIURETIC PEPTIDE STAT 04/22/2024 1:36 PM EST MAGNESIUM STAT 04/22/2024 1:36 PM EST LIPASE STAT 04/22/2024 1:36 PM EST COMPREHENSIVE METABOLIC PANEL STAT 04/22/2024 1:36 PM EST CBC AND DIFFERENTIAL STAT 04/22/2024 1:36 PM EST TROPONIN I HIGH SENSITIVITY STAT 04/22/2024 1:36 PM EST CHAVES URINE CULTURE TUBE STAT 04/22/2024 10:12 AM EST URINALYSIS WITH REFLEX MICROSCOPIC AND CULTURE STAT 04/22/2024 10:12 AM EST URINALYSIS WITH REFLEX MICROSCOPIC AND CULTURE STAT 04/22/2024 10:12 AM EST ECG 12-LEAD STAT 04/22/2024 10:04 AM EST ECG ANNOTATED 04/22/2024 SCREENING MAMMOGRAPHY BI 2-VIEW BREAST INC CAD Routine 03/21/2023 10:27 AM EST Essential (primary) hypertension Hypercalcemia Vitamin D deficiency, unspecified Other hyperlipidemia Other obesity due to excess calories Body mass index (BMI) 32.0-32.9, adult Other specified depressive episodes Tobacco use HEPATITIS C SCREENING Routine 07/05/2019 HIV SCREENING Routine 07/05/2019 from Last 3 Months or Most Recently Relevant to Health Maintenance Results * POC , urine manually resulted (06/14/2024 8:38 PM EST) HCG, Ur POC Negative Negative POC hCG Int QC Pass? Yes Yes Urine Urine specimen obtained by clean catch procedure / Unknown 06/14/2024 8:38 PM EST Eladio Fallon DO POINT OF CARE TEST ENTER/EDIT ORDERABLES Final Result * (ABNORMAL) Urinalysis with reflex microscopic and culture (06/14/2024 7:55 PM EST) Only the most recent of2 resultswithin the time period is included. Specific [place] Urine 1.023 1.003 - 1.030 LAB URINALYSIS - AUTOMATED METHOD 06/14/2024 8:40 PM [facility] pH, Urine 6.5 5.0 - 8.0 pH LAB URINALYSIS - AUTOMATED METHOD 06/14/2024 8:40 PM [facility] Leukocytes, Urine Negative Negative LAB URINALYSIS - AUTOMATED METHOD 06/14/2024 8:40 PM [facility] Nitrite, Urine Negative Negative LAB URINALYSIS - AUTOMATED METHOD 06/14/2024 8:40 PM [facility] Protein, Urine 100(A) <=Trace mg/dL LAB URINALYSIS - AUTOMATED METHOD 06/14/2024 8:40 PM [facility] Glucose, Urine Negative Negative mg/dL LAB URINALYSIS - AUTOMATED METHOD 06/14/2024 8:40 PM [facility] Ketones, Urine Trace(A) Negative mg/dL LAB URINALYSIS - AUTOMATED METHOD 06/14/2024 8:40 PM [facility] Urobilinogen , Urine 1.0 0.2 - 1.0 mg/dL LAB URINALYSIS - AUTOMATED METHOD 06/14/2024 8:40 PM [facility] Bilirubin, Urine Negative Negative LAB URINALYSIS - AUTOMATED METHOD 06/14/2024 8:40 PM [facility] Blood, Urine Small(A) Negative LAB URINALYSIS - AUTOMATED METHOD 06/14/2024 8:40 PM [facility] RBC, Urine 26.2(H) 0 - 4 /HPF LAB URINALYSIS - AUTOMATED METHOD 06/14/2024 8:40 PM [facility] WBC, Urine 2.0 0 - 4 /HPF LAB URINALYSIS - AUTOMATED METHOD 06/14/2024 8:40 PM [facility] Squamous Epithelial, Urine >100(H) 0 - 60 /LPF LAB URINALYSIS - AUTOMATED METHOD 06/14/2024 8:40 PM [facility] Bacteria, Urine Moderate(A) Negative /HPF LAB URINALYSIS - AUTOMATED METHOD 06/14/2024 8:40 PM [facility] Hyaline Casts, Urine 1.2 0 - 3 /LPF LAB URINALYSIS - AUTOMATED METHOD 06/14/2024 8:40 PM [facility] Urine Urine specimen obtained by clean catch procedure / Unknown Non-blood Collection / Unknown 06/14/2024 7:55 PM EST 06/14/2024 8:31 PM EST Eladio Fallon LAB URINE ORDERABLES Final Res ult Performing Organization Address [facility]/ZIP Co de Phone Number [facility] [address] [place] [address], [place] [phone] * Chaves urine culture tube (06/14/2024 7:55 PM EST) Only the most recent of2 resultswithin the time period is included. Extra Tube Hold for add-ons. 06/14/2024 10:03 PM EST [facility] Comment:Auto resulted. Urine Urine specimen obtained by clean catch procedure / Unknown Non-blood Collection / Unknown 06/14/2024 7:55 PM EST 06/14/2024 8:31 PM EST Eladio Fallon DO LAB URINE ORDERABLES Final Res ult Performing Organization Address [facility]/ZIP Co de Phone Number [facility] [address] [place] [address], [place] [phone] * (ABNORMAL) CBC auto differential (06/14/2024 7:36 PM EST) Only the most recent of2 resultswithin the time period is included. WBC 9.2 4.8 - 10.8 K/mcL LAB HEMETOLOGY METHOD 06/14/2024 7:47 PM [facility] RBC 4.80 3.80 - 4.80 M/mcL LAB HEMETOLOGY METHOD 06/14/2024 7:47 PM [facility] Hemoglobin 14.1 11.5 - 16.0 g/dL LAB HEMETOLOGY METHOD 06/14/2024 7:47 PM [facility] Hematocrit 42.2 35.0 - 47.0 % LAB HEMETOLOGY METHOD 06/14/2024 7:47 PM [facility] MCV 87.4 79.0 - 98.0 FL LAB HEMETOLOGY METHOD 06/14/2024 7:47 PM [facility] MCH 29.2 27.0 - 32.0 pcg LAB HEMETOLOGY METHOD 06/14/2024 7:47 PM [facility] MCHC 33.4 32.0 - 37.0 g/dL LAB HEMETOLOGY METHOD 06/14/2024 7:47 PM [facility] RDW 14.7 11.0 - 15.0 % LAB HEMETOLOGY METHOD 06/14/2024 7:47 PM [facility] Platelets 227 130 - 400 K/mcL LAB HEMETOLOGY METHOD 06/14/2024 7:47 PM [facility] MPV 9.4 7.0 - 11.0 FL LAB HEMETOLOGY METHOD 06/14/2024 7:47 PM [facility] NRBC 0.0 <1.0 % LAB HEMETOLOGY METHOD 06/14/2024 7:47 PM [facility] NRBC Absolute 0.00 <0.10 K/mcL LAB HEMETOLOGY METHOD 06/14/2024 7:47 PM [facility] Neutrophils Relative 53.4 % LAB HEMETOLOGY METHOD 06/14/2024 7:47 PM [facility] Lymphocytes Relative 36.8 % LAB HEMETOLOGY METHOD 06/14/2024 7:47 PM [facility] Monocytes Relative 5.1 % LAB HEMETOLOGY METHOD 06/14/2024 7:47 PM [facility] Eosinophils Relative 3.4 % LAB HEMETOLOGY METHOD 06/14/2024 7:47 PM [facility] Basophils Relative 0.9 % LAB HEMETOLOGY METHOD 06/14/2024 7:47 PM [facility] Immature Granulocytes Relative 0.4 % LAB HEMETOLOGY METHOD 06/14/2024 7:47 PM [facility] Neutrophils Absolute 4.88 1.50 - 7.00 K/mcL LAB HEMETOLOGY METHOD 06/14/2024 7:47 PM [facility] Lymphocytes Absolute 3.37 1.00 - 5.00 K/mcL LAB HEMETOLOGY METHOD 06/14/2024 7:47 PM [facility] Monocytes Absolute 0.47 0.20 - 1.00 K/mcL LAB HEMETOLOGY METHOD 06/14/2024 7:47 PM [facility] Eosinophils Absolute 0.31 0.00 - 0.50 K/mcL LAB HEMETOLOGY METHOD 06/14/2024 7:47 PM [facility] Basophils Absolute 0.08 0.00 - 0.20 K/mcL LAB HEMETOLOGY METHOD 06/14/2024 7:47 PM [facility] Immature Granulocytes Absolute 0.04(H) 0.00 - 0.03 K/mcL LAB HEMETOLOGY METHOD 06/14/2024 7:47 PM [facility] Blood Venous blood specimen / Unknown Venipuncture / Unknown 06/14/2024 7:36 PM EST 06/14/2024 7:41 PM EST Eladio Fallon DO LAB BLOOD ORDERABLES Final Res ult Performing Organization Address [facility]/ZIP Co de Phone Number [facility] [address] [place] [address], [place] [phone] * Lipase (06/14/2024 7:36 PM EST) Only the most recent of2 resultswithin the time period is included. Pathologist [facility] Lipase 34 13 - 75 unit/L LAB CHEMISTRY METHOD 06/14/2024 8:16 PM [facility] Blood Venous blood specimen / Unknown Venipuncture / Unknown 06/14/2024 7:36 PM EST 06/14/2024 7:41 PM EST Eladio Fallon LAB BLOOD ORDERABLES Final Res ult Performing Organization Address [facility]/ZIP Co de Phone Number [facility] [address] [place] [address], [place] [phone] * (ABNORMAL) Comprehensive metabolic panel (06/14/2024 7:36 PM EST) Only the most recent of3 resultswithin the time period is included. [facility] Sodium 139 133 - 145 mmol/L LAB CHEMISTRY METHOD 06/14/2024 8:16 PM [facility] Potassium 4.6 3.5 - 5.5 mmol/L LAB CHEMISTRY METHOD 06/14/2024 8:16 PM [facility] Chloride 105 96 - 110 mmol/L LAB CHEMISTRY METHOD 06/14/2024 8:16 PM [facility] CO2 26 21 - 32 mmol/L LAB CHEMISTRY METHOD 06/14/2024 8:16 PM [facility] Anion Gap 8 3 - 11 LAB CHEMISTRY METHOD 06/14/2024 8:16 PM [facility] Glucose 87 70 - 100 mg/dL LAB CHEMISTRY METHOD 06/14/2024 8:16 PM [facility] BUN 10 5 - 25 mg/dL LAB CHEMISTRY METHOD 06/14/2024 8:16 PM [facility] Creatinine 0.79 0.50 - 1.10 mg/dL LAB CHEMISTRY METHOD 06/14/2024 8:16 PM [facility] eGFR 95 >=60 mL/min/1. 73m2 LAB CHEMISTRY METHOD 06/14/2024 8:16 PM [facility] Comment:Calculation based on the??Chronic Kidney Disease Epidemiology Collaboration (CKD-EPI) equation refit??without adjustment for race. BUN/Creatinine Ratio 12.7 LAB CHEMISTRY METHOD 06/14/2024 8:16 PM [facility] Calcium 9.4 8.5 - 10.5 mg/dL LAB CHEMISTRY METHOD 06/14/2024 8:16 PM [facility] AST (SGOT) 15 10 - 42 unit/L LAB CHEMISTRY METHOD 06/14/2024 8:16 PM [facility] ALT (SGPT) 16 10 - 60 unit/L LAB CHEMISTRY METHOD 06/14/2024 8:16 PM [facility] Alkaline Phosphatase 137(H) 42 - 121 unit/L LAB CHEMISTRY METHOD 06/14/2024 8:16 PM [facility] Total Protein 7.6 6.0 - 8.0 g/dL LAB CHEMISTRY METHOD 06/14/2024 8:16 PM [facility] Albumin 4.3 3.2 - 5.0 g/dL LAB CHEMISTRY METHOD 06/14/2024 8:16 PM [facility] Total Bilirubin 0.4 0.0 - 1.4 mg/dL LAB CHEMISTRY METHOD 06/14/2024 8:16 PM [facility] Blood Venous blood specimen / Unknown Venipuncture / Unknown 06/14/2024 7:36 PM EST 06/14/2024 7:41 PM EST us Eladio aFllon DO LAB BLOOD ORDERABLES Final Res ult Performing Organization Address [facility] Co de Phone Number [facility] [address] [place] [address], [place] [phone] * Hemoglobin A1c (04/27/2024 11:57 AM EST) Hemoglobin A1C 5.9 <6.5 % LAB CHEMISTRY METHOD 04/27/2024 8:07 PM EST [facility] Mean Bld Glu Estim. 123 mg/dL LAB CHEMISTRY METHOD 04/27/2024 8:07 PM EST [facility] Blood Venous blood specimen / Unknown Venipuncture / Unknown 04/27/2024 11:57 AM EST 04/27/2024 11:57 AM EST Woody Spivey MD LAB BLOOD ORDERABLES F inal Result Performing Organization Address [facility] de Phone Number [facility] [address] [place] [address], [place] [phone] * XR Hand 3+ Views Right (04/27/2024 11:50 AM EST) Anatomical Region Laterality Modality Upper Extremities, Hand Right Radiogra phic Imaging 04/27/2024 11:5 7 AM EST Impressions 04/27/2024 11:58 AM EST Normal study. -------- FINAL REPORT -------- Dictated By: Viji Gomes Dictated Date: 04/27/2024 11:57 ET Assigned Physician: Viji Gomes Reviewed and Electronically Signed By: Viji Gomes Signed Date: 04/27/2024 11:58 ET Workstation ID: [id number] Transcribed By: Self Edit Transcribed Date: 04/27/2024 11:57 ET Narrative 04/27/2024 11:58 AM EST RIGHT HAND VIEWS: 3 HISTORY: Right hand pain. FINDINGS: There is no acute fracture, malalignment, joint effusion, soft tissue abnormality, or radiopaque foreign body. Procedure Note Viji Gomes MD - 04/27/2024 RIGHT HAND VIEWS: 3 HISTORY: Right hand pain. FINDINGS: There is no acute fracture, malalignment, joint effusion, soft tissueabnormality, or radiopaque foreign body. IMPRESSION: Normal study. -------- FINAL REPORT -------- Dictated By: Viji Gomes Dictated Date: 04/27/2024 11:57 ET Assigned Physician: Viji Gomes Reviewed and Electronically Signed By: Viji Gomes Signed Date: 04/27/2024 11:58 ET Workstation ID: [id number] Transcribed By: Self Edit Transcribed Date: 04/27/2024 11:57 ET us Woody Spivey MD IMG XR PROCEDURES Debbie l Result * (ABNORMAL) Lipid panel with reflex to direct LDL (04/27/2024 9:46 AM EST) Cholesterol 241(H) 0 - 200 mg/dL LAB CHEMISTRY METHOD 04/27/2024 12:40 PM [facility] Triglycerides 194(H) 0 - 150 mg/dL LAB CHEMISTRY METHOD 04/27/2024 12:40 PM [facility] HDL 51 >=40 mg/dL LAB CHEMISTRY METHOD 04/27/2024 12:40 PM [facility] LDL Calculated 151(H) 0 - 100 mg/dL LAB CHEMISTRY METHOD 04/27/2024 12:40 PM [facility] VLDL Cholesterol Christiano 38.8 mg/dL LAB CHEMISTRY METHOD 04/27/2024 12:40 PM [facility] Non HDL Chol. (LDL+VLDL) 190(H) <145 mg/dL LAB CHEMISTRY METHOD 04/27/2024 12:40 PM [facility] Chol/HDL Ratio 4.7(H) 0.0 - 4.4 LAB CHEMISTRY METHOD 04/27/2024 12:40 PM [facility] Blood Venous blood specimen / Unknown Venipuncture / Unknown 04/27/2024 9:46 AM EST 04/27/2024 9:46 AM EST Woody Spivey MD LAB BLOOD ORDERABLES F inal Result [facility] ([facility]) [facility] [address] [place] [address], * CT Angio Chest wo and/or w Contrast (04/22/2024 9:56 PM EST) Anatomical Region Laterality Modality Body Computed Tomogra phy 04/22/2024 11:0 6 PM EST Impressions 04/22/2024 11:06 PM EST Impression: No evidence of pulmonary embolus This document has been electronically signed by: Kennedy Santamaria MD on 04/22/2024 23:06:39 Narrative 04/22/2024 11:[address] angiogram chest/pulmonary arteries with contrast Multiplanar reconstructions and MIPS Comparison: None Findings: No filling defects are noted to suggest pulmonary embolus. Main pulmonary artery normal in caliber. Thoracic aorta normal caliber without dissection. Heart size normal. Great vessel origins patent. Dense coronary calcifications. No significant focal parenchymal abnormalities. No significant mediastinal or hilar adenopathy. No free pleural fluid. No acute bony abnormality noted. Hepatomegaly partially visualized. Cholecystectomy. Procedure Note Kennedy Santamaria MD - 04/22/2024 CT angiogram chest/pulmonary arteries with contrast Multiplanar reconstructions and MIPS Comparison: None Findings: No filling defects are noted to suggest pulmonary embolus. Main pulmonary artery normal in caliber. Thoracic aorta normal caliber without dissection. Heart size normal. Great vessel origins patent. Dense coronary calcifications. No significant focal parenchymal abnormalities. No significant mediastinal or hilar adenopathy. No free pleural fluid. No acute bony abnormality noted. Hepatomegaly partially visualized. Cholecystectomy. IMPRESSION: Impression: No evidence of pulmonary embolus This document has been electronically signed by: Kennedy Santamaria MD on 04/22/2024 23:06:39 Marcel Jeff PA IMG CT PROCEDURES Final Resu lt * Troponin I high sensitivity (04/22/2024 4:33 PM EST) Only the most recent of2 resultswithin the time period is included. High Sensitivity Troponin I 24 <=54 ng/L LAB CHEMISTRY METHOD 04/22/2024 5:28 PM EST [facility] Blood Venous blood specimen / Unknown Venipuncture / Unknown 04/22/2024 4:33 PM EST 04/22/2024 5:02 PM EST Narrative [facility] - 04/22/2024 5:28 PM EST High levels of biotin in samples may falsely decrease hsTroponin values. ??Use caution when interpreting hsTroponin results in patients taking biotin who exhibit renal impairment (eGFR <60) or in patients taking more than 20 mg/day of biotin. Martin Benavidez MD LAB BLOOD ORDERABLES Final Resu lt [facility] [address] [place] [address], [place] [phone] * XR Chest 2 Views (04/22/2024 4:32 PM EST) Anatomical Region Laterality Modality Body Radiographic Nini ging 04/22/2024 4:37 PM EST Impressions 04/22/2024 4:38 PM EST No acute findings. -------- FINAL REPORT -------- Dictated By: Juma Dorman Dictated Date: 04/22/2024 16:37 ET Assigned Physician: Juma Dorman Reviewed and Electronically Signed By: Juma Dorman Signed Date: 04/22/2024 16:38 ET Workstation ID: [id number] Transcribed By: Self Edit Transcribed Date: 04/22/2024 16:37 ET Narrative 04/22/2024 4:38 PM EST PA and lateral views of the chest dated 04/22/2024. HISTORY: chest pain. COMPARISON: 06/21/2023. FINDINGS: Lungs are clear. ??No pleural effusion, pulmonary edema, or pneumothorax. ??Atherosclerotic calcified is of the aorta. ??Surgical clips in right upper quadrant of the abdomen suggestive of a cholecystectomy. ??Mild degenerative changes of the spine. Procedure Note Juma Dorman MD - 04/22/2024 PA and lateral views of the chest dated 04/22/2024. HISTORY: chest pain. COMPARISON: 06/21/2023. FINDINGS: Lungs are clear. No pleural effusion, pulmonary edema, or pneumothorax.Atherosclerotic calcified is of the aorta. Surgical clips in right upperquadrant of the abdomen suggestive of a cholecystectomy. Milddegenerative changes of the spine. IMPRESSION: No acute findings. -------- FINAL REPORT -------- Dictated By: Juma Dorman Dictated Date: 04/22/2024 16:37 ET Assigned Physician: Juma Dorman Reviewed and Electronically Signed By: Juma Dorman Signed Date: 04/22/2024 16:38 ET Workstation ID: [id number] Transcribed By: Self Edit Transcribed Date: 04/22/2024 16:37 ET Martin Benavidez MD IMG XR PROCEDURES Final Result * B-type natriuretic peptide (04/22/2024 1:36 PM EST) BNP 31 <=100 pcg/mL LAB CHEMISTRY METHOD 04/22/2024 2:21 PM EST [facility] Blood Venous blood specimen / Unknown Venipuncture / Unknown 04/22/2024 1:36 PM EST 04/22/2024 1:43 PM EST us Martin Benavidez MD LAB BLOOD ORDERABLES Final Resu lt [facility] [address] [place] [address], [place] [phone] * Magnesium (04/22/2024 1:36 PM EST) Pathologist [facility] Magnesium 2.1 1.9 - 2.6 mg/dL LAB CHEMISTRY METHOD 04/22/2024 2:20 PM EST [facility] Blood Venous blood specimen / Unknown Venipuncture / Unknown 04/22/2024 1:36 PM EST 04/22/2024 1:44 PM EST Martindionicio Benavidez MD LAB BLOOD ORDERABLES Final Resu lt Performing Organization Address [facility] Co de Phone Number [facility] [address] [place] [address], [place] [phone] * ECG 12 lead (04/22/2024 10:04 AM EST) [facility] Ventricular Rate ECG 86 BPM GEMUSE Atrial Rate 86 BPM GEMUSE P-R Interval 146 ms GEMUSE QRS Duration 86 ms GEMUSE Q-T Interval 376 ms GEMUSE QTc 449 ms GEMUSE P Wave [place] 55 degrees GEMUSE R [place] 1 degrees GEMUSE T [place] 11 degrees GEMUSE ECG Interpretation Normal sinus rhythm Possible Left atrial enlargement Left ventricular hypertrophy Abnormal ECG When compared with ECG of 22-JUN-2023 05:52, T wave inversion no longer evident in Anterior leads Confirmed by LAUREN SONG ([id number]) on 04/24/2024 10:43:34 AM GEMUSE 04/22/2024 10:0 4 AM EST 04/24/2024 10:43 AM EST Martin Benavidez MD ECG ORDERABLES Final Result Performing Organization Address City/[facility]/ZIP Co de Phone Number GEMUSE * ECG-Annotated (04/22/2024) Provider Nisha LAY ECG ORDERABLES Final Result * SCREENING MAMMOGRAPHY BI 2-VIEW BREAST INC CAD (03/21/2023 10:27 AM EST) Anatomical Region Laterality Modality Radiographic Nini ging 03/18/2023 9:16 AM EST Narrative 03/24/2023 5:47 PM EST This is a summary report. The complete report is available in the patient's medical record. If you cannot access the medical record, please contact the sending organization for a detailed fax or copy. Exam: Screening mammogram Findings: Digital bilateral full-field screening mammography is performed with tomosynthesis and interpreted with the aid of computer-aided detection. ??Comparison is made with 09/05/2016 and 09/20/2014. ?? Breast parenchyma is composed of scattered fibroglandular densities. ??No new suspicious mass, architectural distortion, or suspicious calcifications. Impression: No mammographic evidence of malignancy. BI-RADS 1 - negative Procedure Note Yahaira Sinha MD - 06/03/2023 This is a summary report. The complete report is available in thepatient's medical record. If you cannot access the medical record, pleasecontact the sending organization for a detailed fax or copy. Exam: Screening mammogram Findings: Digital bilateral full-field screening mammography is performedwith tomosynthesis and interpreted with the aid of computer-aideddetection. Comparison is made with 09/05/2016 and 09/20/2014. Breast parenchyma is composed of scattered fibroglandular densities. Nonew suspicious mass, architectural distortion, or suspiciouscalcifications. Impression: No mammographic evidence of malignancy. BI-RADS 1 - negative Marcel PINEDA IMG XR PROCEDURES Final R esult * HIV Screening (07/05/2019) HIV Screening abstracted Historical Provider HEALTH MAINTENANCE Final Result * Hepatitis C Screening (07/05/2019) Hepatitis C Screening abstracted Historical Provider HEALTH MAINTENANCE Final Result from Last 3 Months or Most Recently Relevant to Health Maintenance Insurance MEDICA[place] - [place] MEDICARE Advance Directives Documents on File Type Date Recorded Patient Take Off Man Expl anation Health Care Decision (hx) 10/25/2020 AD KANG DIRECTIVE Health Care Decision (hx) 10/25/2020 AD KANG DIRECTIVE Health Care Decision (hx) 10/25/2020 AD KANG DIRECTIVE Health Care Decision (hx) 10/25/2020 AD KANG DIRECTIVE Health Care Decision (hx) 10/25/2020 AD KANG DIRECTIVE Health Care Decision (hx) 10/25/2020 AD KANG DIRECTIVE Health Care Decision (hx) 10/25/2020 AD KANG DIRECTIVE Health Care Decision (hx) 10/25/2020 AD KANG DIRECTIVE Health Care Decision (hx) 10/25/2020 AD KANG DIRECTIVE Health Care Decision (hx) 10/25/2020 AD KANG DIRECTIVE Health Care Decision (hx) 10/25/2020 AD KANG DIRECTIVE Health Care Decision (hx) 10/25/2020 AD KANG DIRECTIVE Health Care Decision (hx) 10/25/2020 AD KANG DIRECTIVE Health Care Decision (hx) 10/25/2020 AD KANG DIRECTIVE Health Care Decision (hx) 10/25/2020 AD KANG DIRECTIVE Health Care Decision (hx) 10/25/2020 AD KANG DIRECTIVE Health Care Decision (hx) 10/25/2020 AD KANG DIRECTIVE Health Care Decision (hx) 10/25/2020 AD KANG DIRECTIVE Care Teams Customer Care Assistant Relationship Specialty Start Date End Date Marcel Bass PA [address] [place] [address] PCP - General Internal Medicine 04/09/24
--- OUTSIDE RECORDS SUMMARY | 2024-06-15 12:58 | XMS_ITS | Continuity of Care Document ---
Author Organization [facility] ter Address [address] [place] [id number]- Support Name Relationship Address Phone ALISA, ANKUSH [...] Unknown Unavaila ble Care Team Providers Care Emergency Department Manager Name Role Phone Marcel Duran Primary Care Physician [id number] Date(s): 06/13/24 - 06/13/[address] [address]- Discharge Disposition: A-D/C Walkout Attending Physician: Not on Staff, Attending MD Admitting Physician: Not on Staff, Admitting MD Referring Physician: Not on Staff, Referring [...] Inactivated 81 Given 1Admin Note: VIS GIVEN [phone] 2Admin Note: VIS GIVEN 2009-01 3Admin Note: VIS GIVEN - 01/27/2009 4Admin Note: VIS GIVEN 11/23/06 5Admin Note: VIS 6Result Comment: lot [id number] 7Admin Note: VIS 10/05/93 Medications Albuterol (Eqv-ProAir HFA) 90 mcg/inh inhalation aerosol 2 puffs, Inhalation, Every 6 hours, # 6.7 Gm, 0 Refills, Maintenance, 06/23/22 1:34:00 PM EST, [facility]/pharmacy #[id number], Partial fill upon patient request if [...] Date: 09/22/22 Status: Ordered Repeat number: 1 Physical therapy Physical therapy, [...] Vaginal hysterectomy, Dr Castellano Confirmed 05/30/[address] [facility] [address] Castellano: for persistent RLQ and pelvic pain. found to have right ovarian complex with adhesions to bowel and adhesions between bowel and the anterior abdominal wall. pelviscopy with right SO and lysis of adhesions done. Vital Signs Most recent to oldest [Reference Range]: 1 2 Height 158 cm (06/13/24 6:42 PM) 158 cm (06/13/24 2:51 PM) Weight 70.3 kg (06/13/24 6:42 PM) 70.3 kg (06/13/24 2:51 PM) Oxygen Saturation [94-100 %] 99 % (06/13/24 2:51 PM) 99 % (06/13/24 2:49 PM) Pulse Rate [55-90 bpm] 106 bpm *H* (06/13/24 2:51 PM) 122 bpm *H* (06/13/24 2:49 PM) Body Mass Index [18.5-24.99 kg/m2] 28.16 kg/m2 *H* (06/13/24 2:51 PM) Blood Pressure [90-138/55-84 mm Hg] 184/ 116mm Hg *H* (06/13/24 2:51 PM) Respiratory Rate [16-30 br/min] 20 br/mi n (06/13/24 2:51 PM) Temperature [96.8-100.4 DegF] 98.2 DegF (06/13/24 2:51 PM) Mode of Delivery (Oxygen) Room air (06/13/24 2:51 PM) Room air (06/13/24 2:49 PM) Blood pressure sites Arm, left (06/13/24 2:51 PM) Temperature Route Oral (06/13/24 2:51 PM) Dry Weight 70.3 kg (06/13/24 6:42 PM) 70.3 kg (06/13/24 2:51 PM) Weight Obtained Via Standing scale (06/13/24 2:51 PM) Dry Weight Obtained Via Standing scale (06/13/24 2:51 PM) Social History Social History Type Response Smoking Status 5-9 cigarettes (betw een 1/4 to 1/2 pack)/day in last 30 days entered on: 06/15/22 Sex Female Sex Representation Female (finding) Patient Care team information Care Team Personnel Name: Jerome Cabrera RN Position: [facility] RN Member Role: Primary Care Nurse Name: Beverly Meng RN Position: [facility] ED RN W/OE and Tasks Member Role: Primary Care Nurse Name: Juliane Oshea RN Position: [facility] RN Member Role: Primary Care Nurse Name: Iliana Enciso RN Position: [facility] AMB Nurse Member Role: Primary Care Nurse Name: Lindsey Colbert RN Position: [facility] RN Member Role: Primary Care Nurse Name: Marlen Farser RN Position: [facility] RN Member Role: Primary Care Nurse Name: Arun Pompa DO Position: Reference Physician Member Role: [employer]etime Consulting Physician Address: [address] [place] [id number] Telecom: Name: Sotero Benavidez RN Position: [facility] RN Member Role: Primary Care Nurse Name: Marcel Duran Position: Reference Physician Member Role: PCP Address: [address] [place] [id number] Telecom: Care Team Related Persons Name: NOEL HEAD Name: XAVIER HEAD Insurance Providers Guarantor name: ANKUSH UCELLAR Health Plan Information #: 1 Payer: [employer] Member Number: [id number] Policy Number: NA Group Number: NA Health Plan Information #: 2 Payer: [employer] Member Number: [id number] Policy Number: NA Group Number: NA
--- OUTSIDE RECORDS SUMMARY | 2024-06-15 12:58 | XMS_ITS | Encounter Summary ---
Author Organization [employer] Address [address] [place] [address] Care Team Providers Care Quality Control Specialist Name Role Phone Marcel Bass Primary Care Provider [phone] Encounter Details Date Type Department Care Team ([facility] Contact Info) Description 06/08/2024 Telephone Obstetrics and Gynecology - [place] [address] [place] [phone] Yesika Dhaliwal, [facility] [address] [place], [place] [phone] Social History Tobacco Use Types Packs/Day Years [...] on file documented as of this encounter Progress Notes * Tati Sena RN - 06/08/2024 9:43 AM EST Called patient. Advised her that she still has her left ovary, per u/s performed 2020. * Silvina Suarez - 06/08/2024 9:27 AM EST Pt calling requesting callback, pt wants to know if she still has her L/ ovary. Pls advise documented in this encounter Plan of Treatment Upcoming Encounters Date Type Department Care Team (Late st Contact Info) Description 07/26/2024 12:00 PM EDT Office Visit Adult Medicine [facility] [address] [place] [phone] Marcel Bass PA [address] [place] [address] documented as of this encounter Visit Diagnoses Not on filedocumented in this encounter Care Teams Quality Control Specialist Relationship Specialty Start Date End Date Marcel Bass PA [address] [place] [id number] PCP - General Internal Medicine 04/09/24 documented as of this encounter
[2024-06-15] MEDS: iohexoL 350 MG/ML 75 ML INFUS..BTL 85 ML IV (13:24)
[2024-06-15 13:37] VITALS: BP 179/107; PULSE 81; RESP 18; TEMP 36.2; O2SAT 97
[2024-06-15 16:31] VITALS: BP 193/118; PULSE 78; RESP 18; TEMP 36.7; O2SAT 97
[2024-06-15 16:32] VITALS: BP 193/118; PULSE 78; RESP 18; TEMP 36.7; O2SAT 97
== END 2024-06-15 16:32 | disposition home or self-care (01) ==
PROVIDERS: Physician Assistant Medical; Emergency Provider Emergency Medicine; PCP Physician Assistant Medical
DX: K59.00 Constipation, unspecified (principal); R10.32 Left lower quadrant pain; R39.15 Urgency of urination; Z03.818 Encounter for observation for suspected exposure to other biological agents ruled out; I10 Essential (primary) hypertension; F17.210 Nicotine dependence, cigarettes, uncomplicated; Z79.899 Other long term (current) drug therapy
CPT/HCPCS: 0241U; 74177; 76830; 76856; 80048; 80076; 81001; 83690; 84484; 84702; 85025; 93005; 93975; 96374; 96375; 96376; 99284; J2270; J2405; Q9967

== ENCOUNTER → 2024-06-15 11:06 | Outpatient (BNV) | payer MEDICARE, MEDICAID, SELFPAY | PROVIDERS: Emergency Provider Emergency Medicine; PCP Physician Assistant Medical; Visit Provider Internal Medicine | DX: R94.31 Abnormal electrocardiogram [ECG] [EKG] (principal); R42 Dizziness and giddiness | CPT/HCPCS: 93010 ==

== ENCOUNTER → 2024-06-15 12:50 | Outpatient (BNV) | payer MEDICARE, MEDICAID, SELFPAY | PROVIDERS: Emergency Provider Emergency Medicine; PCP Physician Assistant Medical; Visit Provider Radiology Diagnostic Radiology | DX: K59.00 Constipation, unspecified (principal); R16.0 Hepatomegaly, not elsewhere classified; I25.10 Atherosclerotic heart disease of native coronary artery without angina pectoris; R10.9 Unspecified abdominal pain | CPT/HCPCS: 74177; 93975 ==